=== PATIENT | female | born 1945 | race Caucasian/White ===

== ENCOUNTER → 2017-07-30 11:24 | Outpatient (CLI) | payer MEDICARE, MEDICAID, SELFPAY ==
[2017-07-30 12:01] LABS: Anion Gap 10.6 mEq/L (5-15); Blood Urea Nitrogen 26 mg/dL (7-18); Carbon Dioxide 30 mmol/L (21.0-32.0); Chloride 103 mmol/L (98-107); Creatinine,Serum 1.17 mg/dL (0.55-1.02); Estimated Glomerular Filt Rate 45 ml/min (>60); GFR (African American) 55 ML/MIN (>60); Glucose 92 mg/dL (74-106); Potassium 5.6 mmoL/L (3.5-5.1); Sodium 138 mmol/L (136-145)
[2017-07-30 12:41] LABS: Basophils % 0.2 % (0.1-2.0); Eosinophils # 0.1 K/mm3 (0.0-0.4); Hematocrit 38.3 % (37.0-47.0); Hemoglobin 11.8 g/dL (12.2-16.2); Lymphocytes # 1.9 K/mm3 (0.7-4.5); Lymphocytes % 13.7 K/mm3 (10-50); Mean Corpuscular HGB Conc 30.9 g/dL (31.8-35.4); Mean Corpuscular Hemoglobin 26.7 pg (27.0-31.2); Mean Corpuscular Volume 86.5 fl (81-99); Mean Platelet Volume 7.4 fl (7.4-10.4); Monocytes # 0.5 K/mm3 (0.1-1.0); Monocytes % 3.9 % (1.7-9.3); Neutrophils # 11.1 K/mm3 (1.8-7.8); Neutrophils % 81.3 % (37.0-80.0); Platelet Count 481 K/mm3 (142-424); Red Blood Count 4.43 M/mm3 (4.20-5.40); Red Cell Distribution Width 13.4 % (11.5-17.5); White Blood Count 13.6 K/mm3 (4.8-10.8)
--- NOTE | 2017-07-30 13:29 | CT_ITS ---
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 Sagittal and coronal reformatted images are reviewed as well. All CT scans at the facility use one or more dose reduction, viz: automated exposure control; ma/kV adjustment per patient size (including targeted exams where dose is matched to indication; i.e. head); or iterative reconstruction technique. FINDINGS: Angiographic findings: Diffuse atheromatous calcification involves the abdominal aorta. There is mild ectasia of the lower abdominal aorta at 1.7 cm. Diffuse calcific plaque also involves the iliac vessels. There is high-grade right renal artery stenosis at the ostium of 75 there is 50% stenosis of the ostium of the celiac artery. There is [id number] amputation on the right. Severe stenosis/occlusion is present at the proximal right common iliac artery with severe diffuse narrowing of the right external iliac and common femoral with occlusion of the right superficial femoral artery. Severe atheromatous changes involve the left common iliac and external iliac with diffuse narrowing of the external iliac artery on the left. There is diffuse atheromatous change of the superficial femoral artery on the left with segmental areas of high-grade stenosis involving the mid aspect of the SFA and distal aspect of the SFA. These areas are greater than 50%. The left popliteal artery and extremity lower extremity runoff vessels are very small but do appear patent. Posterior tib, peroneal, and anterior tibial arteries are patent to the ankle. Nonvascular findings: Parenchymal opacities are present in the right lower lobe and may be due to inflammatory or infectious process versus chronic interstitial change. There is a 14 mm isodense in left hepatic lobe may be due to hepatic cyst. Hypervascularity is present in the right hepatic lobe inferiorly and could be due to differential perfusion of the liver. Gallbladder is distended and there is mild prominence of the biliary radicles. No abdominal mass or focal inflammatory change evident.. There is overall slight increased density of the left hemipelvis compared to the right possibly related to weightbearing on the left side as opposed to the right side. There is increased subcutaneous density along the medial malleolus region which may be due to patient's area of soft tissue defect. Please correlate clinically. IMPRESSION: 1. Severe atheromatous changes of the aortoiliac and runoff vessels. 2. Occlusion of the proximal right common iliac 3. Diffuse segmental high-grade stenosis of the left common iliac, external iliac and SFA. There are multiple segmental areas of stenosis of 50% or greater. No obvious occlusive change. 3. The popliteal runoff vessels on the left are small but are not occluded.
[2017-07-30 13:48] LABS: Erythrocyte Sedimentation Rate 72 mm/hr (0-30)
--- NOTE | 2017-07-30 14:58 | HMH.ITSHM ---
VITAMIN B12 PEN NEEDLE MULTIPLE VITAMINS ALBUTEROL DILTIAZEM HYDROCHLORIDE METFORMIN SIMVASTATIN PROAIR HFA NADOLOL AMBIEN LANTUS MUPIROCIN TOPICAL LISNIOPRIL GABAPENTIN
== END ==
PROVIDERS: Visit Provider Internal Medicine Adolescent Medicine
DX: L97.922 Non-pressure chronic ulcer of unspecified part of left lower leg with fat layer exposed (principal); I73.9 Peripheral vascular disease, unspecified
CPT/HCPCS: 36415; 73701; 80048; 85025; 85651; Q9967

== ENCOUNTER → 2017-08-04 11:54 | Outpatient (REF) | payer MEDICARE, MEDICAID, SELFPAY | LOC: LAB 11:54 | PROVIDERS: Visit Provider Internal Medicine Adolescent Medicine | DX: L97.922 Non-pressure chronic ulcer of unspecified part of left lower leg with fat layer exposed (principal); I73.9 Peripheral vascular disease, unspecified | CPT/HCPCS: 87070; 87205 ==

== ENCOUNTER 2017-08-21 10:00 | Outpatient (RCR) | payer MEDICARE, MEDICAID, SELFPAY ==
--- NOTE | 2017-08-04 15:56 | HMH.PTOPWND ---
Rehab Outpt Wound Evaluation Rehab OP Wound Evaluation Start: 08/04/17 09:42 Freq: Status: Active Protocol: Document 08/04/17 09:42 JOESPH (Rec: 08/04/17 09:51 PHOPREET [id number]) Electronically Signed By Rene Reilly, PT 08/04/17 09:42 Subjective/History History History Pt presents with left med mal wound x 2-3 wks and reports, It was red for a few months before this sore showed up. Pt reports minimal c/o pain and tenderness in the periwound area. She had CT angiogram performed which shows significant reduction in arterial flow throughout the left LE. She also has hx of right AKA performed ~ 6 yrs ago. PMH: DM, HTBN, Asthma, JEANNA. Wound Eval Wound Left Medial Ankle Wound Type Arterial ulcer Wound Length (cm) 0.8 Wound Width (cm) 0.8 Wound Depth (cm) 0.2 Wound Bed Appearance Yellow White Percentage of Slough (%) 100 Wound Margins Description Well Defined Surrounding Tissue Appearance Bright Red Drainage Description Serosanguineous Drainage Amount Small Primary Dressing Silver Dressing Wound Secondary Dressing Type Hydrocolloid Wound Debridement Method Sharps Forceps Wound Debridement Amount of Tissue Minimal Removed Wound Problems/Impairments Impairments Problems/Impairmments Palpation Tenderness Wound Care Needs Subjective C/O Pain Impaired Self Care/Self Management Prognosis Rehab Potential Fair Comment Poor arterial circulation and Diabetes provide significant barrier to healing. Clinical Impression Consistent with Diagnosis Yes Short Term Goals Number of Weeks 4 Decreased Palpation Tenderness Yes: to min Increase Red Granulation Tissue % Yes: by 50% Needle Straightener Goals Number of Weeks 8 Decreased Palpation Tenderness Yes: to none Increase Red Granulation Tissue % Yes: by 100% Patient to be Ind w/ Home Wound Care/ Yes Dressing Changes Outpatient Therapy Plan of Care Treatment Plan May Include Therapeutic Exercise Including Home Yes Exercise Program
== END 2017-08-21 10:01 | disposition home or self-care (01) ==
LOC: PT 10:00
PROVIDERS: Family Provider Internal Medicine Adolescent Medicine; Visit Provider Internal Medicine Adolescent Medicine
DX: L97.922 Non-pressure chronic ulcer of unspecified part of left lower leg with fat layer exposed (principal)
CPT/HCPCS: 97162; 97597

== ENCOUNTER → 2017-09-18 06:51 | Outpatient (CLI) | payer MEDICARE, MEDICAID, SELFPAY ==
--- NOTE | 2017-09-18 06:53 | CA_ITS ---
PROCEDURE: 2-D M-mode and color Doppler study INDICATIONS FOR THE TEST: Chest pain COPDX Heart Murmur Tobacco SmokingEX Palpitations Fatigue Syncope Edema HypertensionXDiabetes MellitusX Rheumatic Fever SOBX DOEXObesity HyperlipidemiaX Family History HD Additional History PAD,RBBB PATIENT INFORMATION HEIGHT: 67 WEIGHT:130 GENDER: Female B/P:120/80 2-D/M-MODE INTERPRETATION: 2-D MEASUREMENTS OBSERVED VALUES IN CMS Right Ventricular Dimension (RVDd) 2.0 Interventricular Septum (Thickness)(IVsd) .9 Left Ventricular Internal Dimensions(LVIDd) 4.5 Left Ventricular Posterior Wall (Thickness)(LVPWd) .9 Aortic Root 3.1 Aortic Cusp Separation 1.6 Left Atrial Dimensions (LAD) 3.0 2D 1. Left atrium is normal size, left ventricle is normal size, there is no concentric left ventricular hypertrophy, visually estimated ejection fraction 55% with no obvious regional wall motion abnormality. 2. The right atrium and right ventricle are qualitatively mildly enlarged with normal contractility. 3. The aortic valve is minimally thickened and fibrosed. 4. The mitral and tricuspid valve are grossly normal. 5. The pulmonic valve is poorly visualized. 6. No significant pericardial effusion noted. DOPPLER INTERROGATION: Doppler interrogation of the aortic, mitral and tricuspid valvular presence of mild mitral and tricuspid regurgitation, tricuspid and jet velocity insufficient for calculation of the right ventricular systolic pressure, diastolic parameters are inconclusive. CONCLUSION: 1. Normal left ventricular size, preserved left ventricular systolic function, visually estimated ejection fraction 55% with no obvious regional wall motion abnormality, diastolic parameters are inconclusive. 2. Mildly enlarged right ventricle with normal contractility. 3. Mild mitral and tricuspid regurgitation 4. No significant pericardial effusion noted.
--- NOTE | 2017-09-18 06:53 | NM_ITS ---
History and Indications: Hypertension, diabetes, hyperlipidemia, family history Procedure: Patient received a 0.4 mg of Lexiscan, resting heart rate was 70 bpm resting blood pressure 175/70, with Lexiscan maximum heart rate achieved was 89 bpm which is less than 85% of the maximum predicted heart rate and a blood pressure was 143/61. With intravenous Lexiscan patient complained of shortness of breath. Electrocardiogram: Resting electrocardiogram showed sinus rhythm right ventricular conduction delay, with Lexiscan there is less than 1.[address] segment depression noted from the baseline EKG. The EKG portion of the Lexiscan Myoview is nondiagnostic. Cardiac stress and resting SPECT images: Cardiac stress and rest SPECT images were obtained using technetium 99 Myoview 30.1 mCi at stress and 10.3 mCi at rest. Gated SPECT further analysis of segmental wall motion and calculation of the ejection fraction also done. Cardiac stress and the suspect images show a fixed defect anteroseptally with normal contractility gated SPECT is likely secondary to soft tissue attenuation, no reversible ischemia seen, computer derived ejection fraction over 65% with no obvious regional wall motion abnormality, right ventricle is mildly enlarged with normal contractility. Conclusion: 1. The EKG portion of the Lexiscan Myoview is nondiagnostic. 2. No obvious scintigraphic evidence of reversible ischemia seen, computer derived ejection fraction is over 65% with no obvious regional wall motion abnormality, right ventricle is mildly enlarged with normal contractility.
--- NOTE | 2017-09-18 10:35 | HMH.ITSHM ---
albuterol metformin simvastatin ambien lantus muprirocin lisinopril gabapentin nadolol
== END ==
PROVIDERS: Family Provider Internal Medicine Adolescent Medicine; PCP Internal Medicine Adolescent Medicine; Visit Provider Internal Medicine
DX: I45.10 Unspecified right bundle-branch block (principal); R94.31 Abnormal electrocardiogram [ECG] [EKG]; I73.9 Peripheral vascular disease, unspecified; E78.5 Hyperlipidemia, unspecified; E11.9 Type 2 diabetes mellitus without complications; I10 Essential (primary) hypertension
CPT/HCPCS: 78452; 93017; 93306; A9502; J2785

== ENCOUNTER → 2017-10-23 07:56 | Outpatient (CLI) | payer MEDICARE, MEDICAID, SELFPAY ==
--- NOTE | 2017-10-23 07:58 | AS_ITS ---
Renal Arterial Duplex IMPRESSIONS 1. Greater than 60% stenosis involving the right renal artery 2. No evidence of left renal artery stenosis. 3. Left renal artery waveforms appears highly resistive. Complete renal arterial duplex. Duplex scan and Doppler flow study including spectral analysis, color and izquierdo scale imaging. Height: Height: 170.2cm. Height: 67in. Weight: Weight: 59kg. Weight: 129.7lb. Body mass index: BMI: 20.4kg/m^2. Body surface area: BSA: 1.67m^2. Location: Vascular laboratory. Patient status: Outpatient. Tables: Arterial flow: + +--------+--------+ Location V sys V ed + +--------+--------+ Right renal - proximal 394cm/s 59.1cm/s + +--------+--------+ Right renal - mid 140cm/s 24.4cm/s + +--------+--------+ Right renal - distal 92.9cm/s 20.5cm/s + +--------+--------+ Left renal - proximal 149cm/s 25.8cm/s + +--------+--------+ Left renal - mid 112cm/s 29.5cm/s + +--------+--------+ Left renal - distal 130cm/s 24cm/s + +--------+--------+ Right renal - Origin 400cm/s 44cm/s + +--------+--------+ Left renal - Origin 153cm/s 26cm/s + +--------+--------+ Artery mapping: + +--------+ + Location Diameter Observations + +--------+ + Abdominal aorta - mid 1.8mm Calcification + +--------+ + Renal anatomy: + +-----+-----+ Left Right + +-----+-----+ Long axis 8.4cm 10cm + +-----+-----+ Short axis 4.4cm 4.3cm + +-----+-----+ Velocity ratios: + +-----+ V sys + +-----+ Right renal/aortic 5.4 + +-----+ Left renal/aortic 2.1 + +-----+ (Report amended ) Electronically signed by: Silviano Dean [id number]
== END ==
PROVIDERS: Family Provider Internal Medicine Adolescent Medicine; PCP Internal Medicine Adolescent Medicine; Visit Provider Internal Medicine
DX: R09.89 Other specified symptoms and signs involving the circulatory and respiratory systems (principal); I73.9 Peripheral vascular disease, unspecified
CPT/HCPCS: 93976

== ENCOUNTER 2018-02-05 13:00 | Outpatient (RCR) | payer MEDICARE, MEDICAID, SELFPAY ==
--- NOTE | 2018-01-28 13:35 | HMH.PTOPWND ---
Rehab Outpt Wound Evaluation Rehab OP Wound Evaluation Start: 01/28/18 12:58 Freq: Status: Active Protocol: Document 01/28/18 13:25 PHORSID (Rec: 01/28/18 13:34 PHORNE [id number]) Electronically Signed By Rene Reilly, PT 01/28/18 13:25 Subjective/History History History Pt is 73 yowf who presents with c/o chronic wound to left med malleolus x ~ 1 yr. She reports insidious appearance of the wound initially. She has undergone stenting of the left LE to increase arterial blood flow ~ 5 mos ago. She has PMH of DM-II, HTN, PAD, right AKA. She also rec ently underwent renal US which showed 60% stenosis of right renal artery. Subjective Subjective Currently no c/o pain, but she does report intermittent burning in periwound tissue of left LE. Hyperkeratotic rim noted around wound edge. Wound Eval Wound Left Medial Ankle Wound Type Arterial ulcer Is This a Chronic Wound Yes Wound Length (cm) 0.9 Wound Width (cm) 1.1 Wound Bed Appearance Beefy Red Percentage Granulated (%) 100 Wound Margins Description Well Defined Surrounding Tissue Appearance [place] Edema Type Non-Pitting Edema Degree 1+ Query Text:1+ Trace, Barely Detectable, Rebound 15-30 seconds 2+ Moderate, Slight Indentation, Rebound 10-20 seconds 3+ Deep, Deeper Indentation, Rebound > 30 seconds 4+ Very Deep, Rebound > 60 seconds Edema Appearance Shiny Drainage Description Serous Drainage Amount Scant Drainage Odor No Odor Packing Type Hydrogel (Amorphous) Collagen Comment Silvasorb gel, Puracol Primary Dressing Film Dressing Comment tegaderm with pad Wound Debridement Method Sharps Wound Debridement Amount of Tissue Minimal Removed Wound Debridement Result Healthy Tissue Revealed Dressing Change Patient Tolerance Tolerated Well Wound Problems/Impairments Impairments Problems/Impairmments Increased Edema Wound Care Needs Subjective C/O Pain
== END 2018-02-05 13:01 | disposition home or self-care (01) ==
LOC: PT 13:00
PROVIDERS: Family Provider Internal Medicine Adolescent Medicine; PCP Internal Medicine Adolescent Medicine; Visit Provider Internal Medicine Adolescent Medicine
DX: L03.116 Cellulitis of left lower limb (principal)
CPT/HCPCS: 97162

== ENCOUNTER → 2018-10-02 12:11 | Outpatient (CLI) | payer MEDICARE, MEDICAID, SELFPAY ==
[2018-10-02 12:42] LABS: Basophils % 0.3 % (0.1-2.0); Eosinophils # 0.1 K/mm3 (0.0-0.4); Eosinophils % 1.3 % (0.1-12.0); Hematocrit 35.4 % (37.0-47.0); Hemoglobin 10.9 g/dL (12.2-16.2); Lymphocytes # 1.6 K/mm3 (0.7-4.5); Lymphocytes % 15.6 % (10-50); Mean Corpuscular HGB Conc 30.7 g/dL (31.8-35.4); Mean Corpuscular Volume 84.8 fl (81-99); Mean Platelet Volume 7.6 fl (7.4-10.4); Monocytes # 0.5 K/mm3 (0.1-1.0); Monocytes % 4.6 % (1.7-9.3); Neutrophils # 8.2 K/mm3 (1.8-7.8); Neutrophils % 78.1 % (37.0-80.0); Platelet Count 368 K/mm3 (142-424); Red Blood Count 4.18 M/mm3 (4.20-5.40); White Blood Count 10.5 K/mm3 (4.8-10.8)
[2018-10-02 13:11] LABS: Hemoglobin A1C 5.8 % (0.0-7.0)
[2018-10-02 13:22] LABS: Alanine Aminotransferase 14 U/L (12-78); Albumin Level 3.4 gm/dL (3.4-5.0); Albumin/Globulin Ratio 0.8 (1.1-1.8); Alkaline Phosphatase 150 U/L (46-116); Anion Gap 13.7 mEq/L (5-15); Aspartate Amino Transferase 6 U/L (15-37); Bilirubin,Total 0.2 mg/dL (0.2-1.0); Blood Urea Nitrogen 21 mg/dL (7-18); Calcium 8.9 mg/dL (8.5-10.1); Carbon Dioxide 29 mmol/L (21.0-32.0); Chloride 102 mmol/L (98-107); Chol/HDL Ratio 3.5 (1-3.5); Cholesterol 152 mg/dL (140-200); Creatinine,Serum 1.04 mg/dL (0.55-1.02); Estimated Glomerular Filt Rate 52 ml/min (>60); GFR (African American) 63 ML/MIN (>60); Globulin 4.4 gm/dl (1.3-3.2); Glucose 82 mg/dL (74-106); HDL Cholesterol 44 mg/dL (29-89); LDL Cholesterol 75 mg/dL (0-130); Potassium 4.7 mmoL/L (3.5-5.1); Sodium 140 mmol/L (136-145); Total Protein,Serum 7.8 gm/dL (6.4-8.2); Triglycerides 167 mg/dL (30-200); VLDL Cholesterol 33 mg/dL (0-40)
== END ==
PROVIDERS: Visit Provider Internal Medicine Adolescent Medicine
DX: E78.5 Hyperlipidemia, unspecified (principal); E11.9 Type 2 diabetes mellitus without complications; Z79.4 Long term (current) use of insulin; Z79.84 Long term (current) use of oral hypoglycemic drugs; I73.9 Peripheral vascular disease, unspecified
CPT/HCPCS: 36415; 80053; 80061; 83036; 85025

== ENCOUNTER 2018-10-05 20:05 | Emergency (ER) | payer MEDICARE, MEDICAID, SELFPAY ==
[2018-10-05 20:12] VITALS: BP 190/69; PULSE 79; RESP 18; TEMP 36.9; O2SAT 92; BMI 20.3
[2018-10-05 20:17] VITALS: BP 190/69; PULSE 79; RESP 20; TEMP 36.9; O2SAT 93; BMI 20.3
--- NOTE | 2018-10-05 21:23 | HMH.EDUTC ---
[facility] – [place], [place] Disposition Clinical Impression: Finger laceration Qualifiers: Encounter type: initial encounter Finger: index finger Damage to nail status: without damage Foreign body presence: without foreign body Laterality: right Qualified Code(s): S61.210A - Laceration without foreign body of right index finger without damage to nail, initial encounter Disposition: Home, Self-Care Condition on Discharge: Good Instructions: DI for Laceration Repair -- Finger, How to Care for a Laceration After Repair, DI for Laceration Repair -- Simple Additional Instructions: You have required stitches today. Please read the following instructions so you know how to care for them: 1. Keep wound area dry for the first 24 hours. 2 May clean gently with mild soap and water, after 48 hours to prevent crusting over suture knots. 3. You may shower if your provider gives permission but do not take a bath until the skin is healed.. 4. Never leave a wet dressing or Band-Aid on your stitches as this allows bacteria to reach the area and may cause infection. Band-aids can cause the wound to sweat and not recommended to wear for long periods of time Watch for signs of infection: Increasing redness, tenderness or warmth around the suture site Unusual swelling around the site Appearance of pus around each suture or any red streaks follow up with family doctor immediately if any signs of infectin Fever If you develop any of the above signs or symptoms of infection, Follow up with Family Physician immediately 5. Suture removal in __10-12__days Referrals: Juan Johnson MD [Primary Care Provider] - As needed Time of Disposition: 21:28 Medical Decision Making - Jonatan Inquiry Pt receiving controlled substance: No Jonatan was queried for this patient: No Vital Signs: 10/05/18 20:12 10/05/18 20:17 Temperature 98.5 F 98.5 F Temperature Source Oral Oral Pulse Rate [Right Radial] 79 79 Respiratory Rate 18 20 Blood Pressure [Right Arm] 190/69 H 190/69 H Blood Pressure Mean [Right Arm] 109 109 02 Sat by Pulse Oximetry 92 L 93 L Oxygen Delivery Method Room Air [facility] – [place], [place] HPI - General Stated complaint: AO 0726@2200 Lac to R Index finger Time Seen by Provider: 10/05/18 21:00 Mode of Arrival: Ambulatory Source of Information: Patient Limitations: No Limitations Description of Symptoms (Recalled from Triage Doc. by RN): pt c/o lac on rt hand index finger this morning HEENT Symptoms (Recalled from RN notes): No Resp Symptoms (Recalled from RN notes): No Skin Symptoms (Recalled from RN notes): Yes MS Symptoms (Recalled from RN notes): No Functional Status (Recalled from RN notes): n/a - History of Present Illness Provider Complaint: Patient state that she accidently pinched the skin on her right index finger earlier State that she is on blood thinners and they could'nt get it to stop bleeding State that she noticed that it looke like the skin was gone so they come in to get it checked - Related Data Home Medications Medication Instructions Recorded Confirmed nadolol 40 mg tablet 40 mg PO BID 08/12/17 simvastatin 20 mg tablet 20 mg PO QAM 08/12/17 albuterol sulfate 2.5 mg/3 mL 1.25 mg INHALATION TID ml 09/02/17 (0.083 %) solution for nebulization insulin glargine (U-100) 100 1 unit SUB-Q DAILY ml 09/02/17 unit/mL (3 mL) subcutaneous pen lisinopril 20 mg tablet 20 mg PO DAILY tab 09/02/17 metformin ER 500 mg 500 mg PO DAILY tab 09/02/17 tablet,extended release 24 hr gabapentin 300 mg capsule 300 mg PO TID cap 02/03/18 zolpidem 10 mg tablet 5 mg PO QHS tab 02/03/18 Previous Rx's Medication Instructions Recorded aspirin 81 mg tablet,delayed 81 mg PO DAILY #30 tab 11/04/17 release clopidogrel 75 mg tablet 75 mg PO DAILY #30 tab 05/11/18 diltiazem ER 120 mg 120 mg PO DAILY #30 cap 07/23/18 capsule,extended release 12 hr Allergies Allergy/AdvReac Type Severity Reaction Status Date / Time Penicillins [PENICILLINS] Al
[2018-10-05 21:24] VITALS: BP 126/66; PULSE 65; RESP 18; TEMP 36.7; O2SAT 100
--- NOTE | 2018-10-05 21:27 | ED_ITS ---
[facility] [place] Clinical Impression: Finger laceration Qualifiers: Encounter type: initial encounter Finger: index finger Damage to nail status: without damage Foreign body presence: without foreign body Laterality: right Qualified Code(s): S61.210A - Laceration without foreign body of right index finger without damage to nail, initial encounter Disposition: Home, Self-Care Condition on Discharge: Good Instructions: DI for Laceration Repair -- Finger, How to Care for a Laceration After Repair, DI for Laceration Repair -- Simple Additional Instructions: You have required stitches today. Please read the following instructions so you know how to care for them: 1. Keep wound area dry for the first 24 hours. 2 May clean gently with mild soap and water, after 48 hours to prevent crusting over suture knots. 3. You may shower if your provider gives permission but do not take a bath until the skin is healed.. 4. Never leave a wet dressing or Band-Aid on your stitches as this allows bacteria to reach the area and may cause infection. Band-aids can cause the wound to sweat and not recommended to wear for long periods of time Watch for signs of infection: Increasing redness, tenderness or warmth around the suture site Unusual swelling around the site Appearance of pus around each suture or any red streaks follow up with family doctor immediately if any signs of infectin Fever If you develop any of the above signs or symptoms of infection, Follow up with Family Physician immediately 5. Suture removal in __10-12__days Referrals: Juan Johnson MD [Primary Care Provider] - As needed Time of Disposition: 21:28 Medical Decision Making - Jonatan Inquiry Pt receiving controlled substance: No Jonatan was queried for this patient: No Vital Signs: 10/05/18 20:12 10/05/18 20:17 Temperature 98.5 F 98.5 F Temperature Source Oral Oral Pulse Rate [Right Radial] 79 79 Respiratory Rate 18 20 Blood Pressure [Right Arm] 190/69 H 190/69 H Blood Pressure Mean [Right Arm] 109 109 02 Sat by Pulse Oximetry 92 L 93 L Oxygen Delivery Method Room Air [facility] [place] - General Stated complaint: AO 0726@2200 Lac to R Index finger Time Seen by Provider: 10/05/18 21:00 Mode of Arrival: Ambulatory Source of Information: Patient Limitations: No Limitations Description of Symptoms (Recalled from Triage Doc. by RN): pt c/o lac on rt hand index finger this morning HEENT Symptoms (Recalled from RN notes): No Resp Symptoms (Recalled from RN notes): No Skin Symptoms (Recalled from RN notes): Yes MS Symptoms (Recalled from RN notes): No Functional Status (Recalled from RN notes): n/a - History of Present Illness Provider Complaint: Patient state that she accidently pinched the skin on her right index finger earlier State that she is on blood thinners and they could'nt get it to stop bleeding State that she noticed that it looke like the skin was gone so they come in to get it checked - Related Data Home Medications Medication Instructions Recorded Confirmed nadolol 40 mg tablet 40 mg PO BID 08/12/17 simvastatin 20 mg tablet 20 mg PO QAM 08/12/17 albuterol sulfate 2.5 mg/3 mL 1.25 mg INHALATION TID ml 09/02/17 (0.083 %) solution for nebulization insulin glargine (U-100) 100 1 unit SUB-Q DAILY ml 09/02/17 unit/mL (3 mL) subcutaneous pen lisinopril 20 mg tablet 20 mg PO DAILY tab 09/02/17
== END 2018-10-05 21:30 | disposition home or self-care (01) ==
PROVIDERS: Emergency Provider Nurse Practitioner; PCP Internal Medicine Adolescent Medicine
DX: S61.210A Laceration without foreign body of right index finger without damage to nail, initial encounter (principal); E10.9 Type 1 diabetes mellitus without complications; I10 Essential (primary) hypertension; Z87.891 Personal history of nicotine dependence; Z88.0 Allergy status to penicillin; W45.8XXA Other foreign body or object entering through skin, initial encounter
CPT/HCPCS: 12001; G0463; 99201

== ENCOUNTER 2019-01-14 08:17 | Inpatient (IN) ==
--- NOTE | 2019-01-14 08:24 | Emergency Department Note ---
ED Disposition Clinical Impression: Avulsion of skin, Traumatic hematoma of forehead, Hematoma of right hip, Fall at home, Hip fracture, UTI (urinary tract infection) Disposition: Admitted as Observation Condition on Discharge: Serious Instructions: DI for Hematoma (Bruise), How to Prevent Falls Referrals: Juan Johnson MD [Primary Care Provider] - - Critical Care Critical Care Time: No Attestation: On , the high probability of a clinically significant, sudden or life t hreatening deterioration of the following system(s) required my full and direct attention, intervention and personal management. The time I documented below is in addition to time spent performing reported procedures but includes the following listed in this critical care notation. Medical Decision Making - Medical Records Medical records reviewed: Yes: I reviewed the patient's medical records. - Jonatan Inquiry Pt receiving controlled substance: No Vital Signs: 01/14/19 08:18 01/14/19 08:36 01/14/19 08:37 Temperature 98 F Temperature Source Oral Pulse Rate [Left Radial] 80 Respiratory Rate 24 Blood Pressure [Right Arm] 173/83 H Blood Pressure Mean [Right Arm] 113 Blood Pressure Source [Right Arm] Automatic Cuff Blood Pressure Position [Right Arm] Sitting 02 Sat by Pulse Oximetry 93 L 88 L 99 Oxygen Delivery Method Room Air Room Air Nasal Cannula Oxygen Flow Rate (LPM) 3 01/14/19 08:48 01/14/19 10:34 01/14/19 11:13 Temperature Temperature Source Pulse Rate [Left Radial] 88 84 86 Respiratory Rate Blood Pressure [Right Arm] 137/70 99/55 L 103/50 L Blood Pressure Mean [Right Arm] 92 69 67 Blood Pressure Source [Right Arm] Blood Pressure Position [Right Arm] Sitting Sitting 02 Sat by Pulse Oximetry 98 Oxygen Delivery Method Oxygen Flow Rate (LPM) - Lab Data Lab Results 01/14/19 08:20: WBC 15.6 H, RBC 4.26, Hgb 10.8 L, Hct 35.4 L, MCV 83.1, MCH 25.4 L, MCHC 30.6 L, RDW 15.2, Plt Count 417, MPV 7.7, Neut % (Auto) 82.3 H, Lymph % (Auto) 10.6, [place] % (Auto) 6.5, Eos % (Auto) 0.5, Baso % (Auto) 0.2, Neut # (Auto) 12.8 H, Lymph # (Auto) 1.7, [place] # (Auto) 1.0, Eos # (Auto) 0.1, Baso # (Auto) 0.0, Total Counted 100, Neutrophils % (Manual) 85 H, Band Neutrophils % 2.0, Lymphocytes % (Manual) 5 L, Monocytes % (Manual) 7, Eosinophils % (Manual) 1, Platelet Estimate Normal, Hypochromasia 1+ 01/14/19 08:20: B-Natriuretic Peptide 221 H 01/14/19 08:26: Urine Color Yellow, Urine Appearance Cloudy, Urine pH 6.0, Ur Specific [place] 1.020, Urine Protein 1+, Urine Glucose (UA) Negative, Urine Ketones Negative, Urine Blood Trace-i, Urine Nitrate Negative, Urine Bilirubin Negative, Urine Urobilinogen 0.2, Ur Leukocyte Esterase 1+ A, Urine RBC None, Urine WBC 5-10, Ur Squamous Epith Cells 3-5, Urine Bacteria 4+ 01/14/19 09:55: PT 10.7, INR 1.03 01/14/19 09:55: Sodium 137, Potassium 4.7, Chloride 102, Carbon Dioxide 28, Anion Gap 11.7, BUN 19 H, Creatinine 1.10 H, Estimated Creat Clear 39, Estimated GFR 48 L, Est GFR ( Amer) 59, Glucose 48 L, Calcium 8.6, Total Bilirubin 0.2, AST 16, ALT 16, Alkaline Phosphatase 106, Total Creatine Kinase 69, CK-MB (CK-2) 1.1, CK-MB (CK-2) Rel Index 1.6, Troponin I < 0.02, Total Protein 8.2, Albumin 3.3 L, Globulin 4.9 H, Albumin/Globulin Ratio 0.7 L 01/14/19 09:55: Lactate 0.5 Result diagrams: 01/14/19 08:20 01/14/19 09:55 Orders (Tests/Meds): ED MEDICATIONS Generic Name Dose Route Start Last Admin Trade Name Freq PRN Reason Stop Dose Admin Levofloxacin/Dextrose 500 mg in 100 mls @ 100 mls/hr 01/14/19 12:45 Levaquin 500mg/100ml Premix IV 01/28/19 12:44 Q24H ALEX Protocol Discontinued Medications Generic Name Dose Route Start Last Admin Trade Name Freq PRN Reason Stop Dose Admin Dextrose 50 ml 01/14/19 10:51 01/14/19 10:52 Dextrose 50% 50ml Syringe IVP 01/14/19 10:52 50 ml ONCE ONE Administration Hydromorphone HCl 0.5 mg 01/14/19 08:49 01/14/19 08:35 Dilaudid 2mg/Ml Syringe IV 01/14/19 08:50 0.5 mg ONCE ONE Administration Hydromorphone HCl 0.5 mg 01/14/19 10:15 01/14/19 10:16 Dilaudid 2mg/Ml Syringe IV 01/14/19 10:16 0.5 mg ONCE ONE Administration Sodium Chloride 1,000 mls @ 999 mls/hr 01/14/19 09:00 01/14/19 08:51 Sod Chlor 0.9% 1000ml Bag IV 01/14/19 10:00 999 mls/hr .Q1H1M ALEX Administration Ondansetron HCl 4 mg 01/14/19 08:49 01/14/19 08:51 Zofran 4mg/2ml Vial IV 01/14/19 08:50 4 mg ONCE ONE Administration Tetanus/Reduced Diphtheria/Acell Pertussis 0.5 ml 01/14/19 08:56 01/14/19 10: 03 Adacel Tdap 0.5ml Syringe IM 01/14/19 08:57 0.5 ml .ONCE ONE Administration ORDERS Category Date Time Status Femur XR right 2 views [XR femur RT 2V] Stat Exams 01/14/19 11:53 Ordered Hip XR right minimum 2 views [XR hip RT 2-3V w/pelvis] Exams 01/14/19 11:52 Ordered Stat Blood Culture Stat Micro 01/14/19 09:55 Received Urine Culture Stat Micro 01/14/19 08:26 Received - ECG Data Tracing #1 I reviewed this ECG and interpreted as documented below: Normal Sinus Rhythm: Yes Conduction abnormalities present: RBBB General Adult HPI - General Chief complaint: Wound/Laceration Stated complaint: Laceration Time Seen by Provider: 01/14/19 08:20 Mode of Arrival: EMS Source of Information: Patient, EMS - History of Present Illness HPI narrative: 33-year-old female with right AKA fell forward out of her wheelchair and sustained a hematoma to the right forehead and right hip. Onset (ago): hour(s) (1) Location: head, right, lower extremity Radiation: non-radiation Severity: moderate Quality: aching Consistency: constant Relieving factors: none Exacerbating factors: movement Associated symptoms: denies other symptoms - Related Data Home Medications Medication Instructions Recorded Confirmed nadolol 40 mg tablet 40 mg PO BID 08/12/17 01/14/19 simvastatin 20 mg tablet 20 mg PO QAM 08/12/17 01/14/19 albuterol sulfate 2.5 mg/3 mL 1.25 mg INHALATION TID ml 09/02/17 01/14/19 (0.083 %) solution for nebulization insulin glargine (U-100) 100 1 unit SUB-Q DAILY ml 09/02/17 01/14/19 unit/mL (3 mL) subcutaneous pen lisinopril 20 mg tablet 20 mg PO DAILY tab 09/02/17 01/14/19 metformin ER 500 mg 500 mg PO DAILY tab 09/02/17 01/14/19 tablet,extended release 24 hr gabapentin 300 mg capsule 300 mg PO TID cap 02/03/18 01/14/19 zolpidem 10 mg tablet 5 mg PO QHS tab 02/03/18 01/14/19 RX: Aspirin [Low Dose Aspirin EC] 81 mg PO DAILY 01/14/19 01/14/19 RX: Clopidogrel Bisulfate [Plavix 75 mg PO DAILY 01/14/19 01/14/19 75mg Tab] Previous Rx's Medication Instructions Recorded diltiazem ER 120 mg 120 mg PO DAILY #30 cap 01/14/19 capsule,extended release 12 hr Allergies Allergy/AdvReac Type Severity Reaction Status Date / Time Penicillins [PENICILLINS] Allergy Unknown Verified 02/10/18 09:54 [facility] History - Hepatitis A Screen Attestation statement:: This patient has been screened for Hepatitis A risk factors. I have reviewed the patient's past medical history: Yes Medical History: Reports:: Diabetes Mellitus Type 1, Hypertension Denies:: Cancer, Diabetes Mellitus Type 2, Internal Pacemaker, MRSA, Seizures Other Medical History: Reports: Arthritis Other Surgeries: Yes: Cardiac Catheterization (08/22/17 2 stents), Hysterectomy- Total, Other (right leg knee down amputated ). No: Pacemaker Amputation: Yes Fractures: No - Social History Smoking Status: Never smoker Tobacco Type: cigarettes Alcohol Intake: never Alcohol Intake Frequency:: other Substance Use Type: denies use Occupational Status: retired Housing: house Household Members: none Family Hx:: Diabetes ROS Obtained: Yes Systems reviewed as appropriate & no additional complaints - Constitutional Constitutional: Reports fatigue, Reports headache(s), Reports malaise - Eyes Eyes: Reports system reviewed and no additional complaints, except as docu - ENT Ears, Nose, Mouth, and Throat: Reports system reviewed and no additional complaints, except as docu - Cardiovascular Cardiovascular: Reports system reviewed and no additional complaints, except as docu - Respiratory Respiratory: Yes system reviewed and no additional complaints, except as docu - Gastrointestinal Gastrointestingal: Reports: system reviewed and no additional complaints, except as docu - Genitourinary Female Genitourinary: Reports system reviewed and no additional complaints, except as docu - Musculoskeletal Musculoskeletal: Reports joint pain, Reports muscle aches - Integumentary/Breasts Skin/Breast: Reports wounds - Neurologic Neurologic: Denies abnormal speech, Denies behavioral changes, Denies confusion, Denies convulsions, Denies dizziness, Denies focal weakness, Reports headache(s), Denies loss of vision, Denies memory loss, Denies numbness, Denies seizure-like activity, Denies sensory deficit, Denies syncope, Denies vertigo - Endocrine Endocrine: Reports system reviewed and no additional complaints, except as docu - Hematologic/Lymphatic Henatologic/Lymphatic: Reports easy bruising - Allergic/Immunologic Allergic/Immunologic: Reports system reviewed and no additional complaints, except as docu Physical Exam - General General appearance: alert, in distress - Expanded Head Exam Head exam physical: Present: contusion, hematoma. Absent: laceration, abrasion, raccoon eyes, Romero's sign, tenderness of temporal artery, CSF rhinorrhea, CSF otorrhea - Eye Eye exam: Present: normal appearance, PERRL, EOMI. Absent: nystagmus, miosis, mydriasis, periorbital swelling, periorbital tenderness - ENT ENT exam: Present: normal exam, normal oropharynx, mucous membranes moist, TM's normal bilaterally, normal external ear exam - Neck Neck exam: Present: normal inspection, full ROM, trachea midline. Absent: meningismus, lymphadenopathy - Chest Chest inspection: Present: normal inspection, symmetric chest wall rise. Absent: tenderness - Respiratory Respiratory exam: Present: other (Rhonchi noted bilaterally, greater on the right). Absent: respiratory distress, wheezes, stridor, accessory muscle use, prolonged expiratory phase - Cardiovascular Cardiovascular exam: Present: regular rate, normal rhythm. Absent: JVD - Abdominal Exam Abdominal exam: Present: soft, normal bowel sounds. Absent: distention, tend erness, guarding - External exam: Present: normal external exam - Back Exam Back exam: Present: normal inspection. Absent: tenderness - Neurological Exam Neurological exam: Present: alert, oriented X3, CN II-XII intact, motor sensory deficit - Psychiatric Psychiatric exam: Present: normal affect, anxious - Skin Skin exam: Present: warm, dry, other (A trauma to right forehead and right hip skin tear to left hand) - Lymphatic Lymphatic Findings: no adenopathy
[2019-01-14 09:00] LABS: Basophils % 0.2 % (0.1-2.0); Eosinophils # 0.1 K/mm3 (0.0-0.4); Eosinophils % 0.5 % (0.1-12.0); Hematocrit 35.4 % (37.0-47.0); Hemoglobin 10.8 g/dL (12.2-16.2); Lymphocytes # 1.7 K/mm3 (0.7-4.5); Lymphocytes % 10.6 % (10-50); Mean Corpuscular HGB Conc 30.6 g/dL (31.8-35.4); Mean Corpuscular Volume 83.1 fl (81-99); Mean Platelet Volume 7.7 fl (7.4-10.4); Monocytes % 6.5 % (1.7-9.3); Neutrophils # 12.8 K/mm3 (1.8-7.8); Neutrophils % 82.3 % (37.0-80.0); Platelet Count 417 K/mm3 (142-424); Red Blood Count 4.26 M/mm3 (4.20-5.40); Red Cell Distribution Width 15.2 % (11.5-17.5); White Blood Count 15.6 K/mm3 (4.8-10.8)
[2019-01-14 09:27] LABS: Eosinophils % 1 % (0-3); Lymphocytes % 5 % (10-50); Monocytes % 7 % (2-9); Neutrophils % 85 % (42-76); Total Cells Counted 100
[2019-01-14 09:28] LABS: Hypochromasia 1+
[2019-01-14 09:35] LABS: Microscopic, Urine URINE MICROSCOPIC (MICROSCOPIC)
[2019-01-14 09:43] LABS: Appearance,Urine CLOUDY (Clear); Bilirubin,Urine Negative (Negative); Blood, Urine TRACE-I (Negative); Color,Urine YELLOW (Yellow); Glucose,Urine (UA) Negative (Negative); Ketones,Urine Negative (Negative); Leukocyte Esterase,Urine 1+ (Negative); Protein,Urine 1+ (Negative); Urobilinogen,Urine 0.2 EU/dl (0.2)
[2019-01-14 10:21] LABS: Bacteria,Urine 4+ /lpf
[2019-01-14 10:24] LABS: INR 1.03 (0.9-1.1); Prothrombin Time 10.7 seconds (9.4-11.8)
[2019-01-14 10:42] LABS: Alanine Aminotransferase 16 U/L (12-78); Albumin Level 3.3 gm/dL (3.4-5.0); Albumin/Globulin Ratio 0.7 (1.1-1.8); Alkaline Phosphatase 106 U/L (46-116); Anion Gap 11.7 mEq/L (5-15); Aspartate Amino Transferase 16 U/L (15-37); Bilirubin,Total 0.2 mg/dL (0.2-1.0); Blood Urea Nitrogen 19 mg/dL (7-18); Calcium 8.6 mg/dL (8.5-10.1); Carbon Dioxide 28 mmol/L (21.0-32.0); Chloride 102 mmol/L (98-107); Creatine Kinase 69 U/L (26-192); Globulin 4.9 gm/dl (1.3-3.2); Sodium 137 mmol/L (136-145); Total Protein,Serum 8.2 gm/dL (6.4-8.2)
[2019-01-14 10:43] LABS: Glucose 48 mg/dL (74-106)
--- NOTE | 2019-01-14 13:43 | History & Physical Report ---
*Admission Date: 01/14/19 *Chief complaint: fall, hip fracture *History of present illness: Ms. Teague is a 73-year-old female with multiple comorbidities consisting coronary artery disease, hypertension, diabetes, right AKA, on Plavix and aspirin who presented to the ER earlier today after a fall. Unable to obtain history from patient on exam this afternoon but obtain history from family at bedside (son and [id number]). They report that she fell while trying to transition from her bed to her wheelchair. She was using her manual wheelchair instead of her motorized scooter at the time and it appeared that it had flipped while she was trying to get into it causing her to fall, hit her head on the bedside table, and have trauma to right side of her face, arm, leg. They report that she she does not ambulate at baseline and is status post right AKA for complications of diabetes. She lives independently and transports around her house using either motorized scooter or manual wheelchair in her left leg for propulsion. They report finding her at her bedside and calling EMS who brought her to the ER. On assessment it was found that when she fell, she sustained large hematomas to the right hip and the scalp, as well as a right intertrochanteric femur fracture. He says that she does not ambulate at baseline and has not used a prosthesis for this limb. He says her leg was initially amputated due to complications of diabetes. She also has a history of peripheral vascular disease status post bypass grafting, though the exact procedure is unknown to him or the patient. Admitted for further management and possible fixation by orthopedic surgery. Unable to obtain review of systems from patient as she is sleeping secondary to pain medication. Dynamically stable on assessment. [facility] History I have reviewed the patient's past medical history: Yes Medical History: Reports:: Diabetes Mellitus Type 1, Hypertension Denies:: Cancer, Diabetes Mellitus Type 2, Internal Pacemaker, MRSA, Seizures *Have you ever received a pneumonia vaccine?: No *Have you received a flu vaccine this season?: No Other Medical History: Reports: Arthritis Other Surgeries: Yes: Cardiac Catheterization (08/22/17 2 stents), Hysterectomy- Total, Other (right leg knee down amputated ). No: Pacemaker Amputation: Yes Fractures: No - *Social History Smoking Status: Never smoker Tobacco Type: cigarettes Alcohol Intake: never Alcohol Intake Frequency:: other Substance Use Type: denies use *Occupational Status:: retired Housing: house Household Members: none *Travel in the last 8 weeks: None Family Hx:: Diabetes Review of Systems - Review of Systems Review of systems:: unable to obtain - *Neurologic Reports headache(s), Denies abnormal speech, Denies behavioral changes, Denies confusion, Denies seizure-like activity, Denies dizziness, Denies localized weakness, Denies loss of vision, Denies memory loss, Denies numbness, Denies s eizure-like activity, Denies sensory deficit, Denies fainting, Denies dizziness Meds Home Medications Medication Instructions Recorded Confirmed Type nadolol 40 mg tablet 40 mg PO BID 08/12/17 01/14/19 History insulin glargine (U-100) 100 20 unit SUB-Q HS ml 09/02/17 01/14/19 History unit/mL (3 mL) subcutaneous pen lisinopril 20 mg tablet 20 mg PO BID tab 09/02/17 01/14/19 History gabapentin 300 mg capsule 300 mg PO TID cap 02/03/18 01/14/19 History Albuterol Sulfate [Proair Hfa 2 puffs IH QIDP PRN 01/14/19 01/14/19 History 90mcg/puff Inh] Aspirin [Low Dose Aspirin EC] 81 mg PO DAILY 01/14/19 01/14/19 History Clopidogrel Bisulfate [Plavix 75mg 75 mg PO DAILY 01/14/19 01/14/19 History Tab] Linaclotide [Linzess] 145 mcg PO DAILY 01/14/19 01/14/19 History Metformin HCl 500 mg PO TID 01/14/19 01/14/19 History Rosuvastatin Calcium 5 mg PO HS 01/14/19 01/14/19 History Zolpidem Tartrate [Ambien 10mg 10 mg PO HS 01/14/19 01/14/19 History tablet] diltiazem ER 120 mg 120 mg PO DAILY #30 cap 01/14/19 01/14/19 Rx capsule,extended release 12 hr Allergies Allergy/AdvReac Type Severity Reaction Status Date / Time Penicillins [PENICILLINS] Allergy Unknown Verified 02/10/18 09:54 Exam Vital signs and Labs for Last 24 Hours: Temp Pulse Resp BP Pulse Ox 98 F 72 22 101/60 L 97 01/14/19 13:39 01/14/19 13:39 01/14/19 13:39 01/14/19 13:39 01/14/19 13:00 Laboratory Results - last 24 hr 01/14/19 08:20: WBC 15.6 H, RBC 4.26, Hgb 10.8 L, Hct 35.4 L, MCV 83.1, MCH 25.4 L, MCHC 30.6 L, RDW 15.2, Plt Count 417, MPV 7.7, Neut % (Auto) 82.3 H, Lymph % (Auto) 10.6, [place] % (Auto) 6.5, Eos % (Auto) 0.5, Baso % (Auto) 0.2, Neut # (Auto) 12.8 H, Lymph # (Auto) 1.7, [place] # (Auto) 1.0, Eos # (Auto) 0.1, Baso # (Auto) 0.0, Total Counted 100, Neutrophils % (Manual) 85 H, Band Neutrophils % 2.0, Lymphocytes % (Manual) 5 L, Monocytes % (Manual) 7, Eosinophils % (Manual) 1, Platelet Estimate Normal, Hypochromasia 1+ 01/14/19 08:20: B-Natriuretic Peptide 221 H 01/14/19 08:26: Urine Color Yellow, Urine Appearance Cloudy, Urine pH 6.0, Ur Specific [place] 1.020, Urine Protein 1+, Urine Glucose (UA) Negative, Urine Ketones Negative, Urine Blood Trace-i, Urine Nitrate Negative, Urine Bilirubin Negative, Urine Urobilinogen 0.2, Ur Leukocyte Esterase 1+ A, Urine RBC None, Urine WBC 5-10, Ur Squamous Epith Cells 3-5, Urine Bacteria 4+ 01/14/19 09:55: PT 10.7, INR 1.03 01/14/19 09:55: Sodium 137, Potassium 4.7, Chloride 102, Carbon Dioxide 28, Anion Gap 11.7, BUN 19 H, Creatinine 1.10 H, Estimated Creat Clear 39, Estimated GFR 48 L, Est GFR ( Amer) 59, Glucose 48 L, Calcium 8.6, Total Bilirubin 0.2, AST 16, ALT 16, Alkaline Phosphatase 106, Total Creatine Kinase 69, CK-MB (CK-2) 1.1, CK-MB (CK-2) Rel Index 1.6, Troponin I < 0.02, Total Protein 8.2, Albumin 3.3 L, Globulin 4.9 H, Albumin/Globulin Ratio 0.7 L 01/14/19 09:55: Lactate 0.5 01/14/19 12:37: POC Glucose 129 H I & O for Last 24 hours: Intake & Output 01/11/19 01/12/19 01/13/19 01/14/19 23:59 23:59 23:59 23:59 Weight 55.338 kg - Constitutional mild distress, thin, chronically ill appearing, somnolent - *Routine HEENT Exam Head: Present: normocephalic Comments: Large hematoma right forehead, bruising on right cheek, poor dentition with moist mucous membranes. - *Routine Neck Exam Present: supple. Absent: JVD - *Routine Respiratory Exam Present: CTA bilaterally. Absent: prolonged expiratory phase, crackles - *Routine Cardiovascular Exam Present: RRR, Normal S1. Absent: murmur - *Routine Abdominal Exam Present: soft, normoactive bowel sounds - *Routine Rectal Exam Patient deferred: visual exam - *Routine Exam Patient deferred: external exam - *Routine Extremities Exam Absent: cyanosis, clubbing, edema Comments: Pulses thready in left lower extremity. Right lower extremity absent proximal to knee, ecchymoses on right lateral hip - *Routine Skin Exam Present: intact, pallor. Absent: cyanosis, erythema - *Routine Neurological Exam Present: altered mental status Assessment and Plan (1) Fall at home Current visit: Yes Status: Acute Category: Medical Code(s): W19.XXXA - Unspecified fall, initial encounter; Y92.009 - Unspecified place in unspecified non-institutional (private) residence as the place of occurrence of the external cause (2) Hematoma of right hip Current visit: Yes Status: Acute Category: Medical Code(s): S70.01XA - Contusion of right hip, initial encounter (3) Intertrochanteric fracture of right hip Current visit: Yes Status: Acute Qualifiers: Encounter type: initial encounter Fracture type: closed Fracture alignment: nondisplaced Qualified Code(s): S72.144A - Nondisplaced intertrochanteric fracture of right femur, initial encounter for closed fracture Category: Medical Code(s): S72.141A - Displaced intertrochanteric fracture of right femur, initial encounter for closed fracture (4) Traumatic hematoma of forehead Current visit: Yes Status: Acute Category: Medical Code(s): S00.83XA - Contusion of other part of head, initial encounter (5) UTI (urinary tract infection) Current visit: Yes Status: Acute Category: Medical Code(s): N39.0 - Urinary tract infection, site not specified (6) HTN (hypertension) Current visit: No Status: Chronic Qualifiers: Hypertension type: essential hypertension Qualified Code(s): I10 - Essential (primary) hypertension Category: Medical Code(s): I10 - Essential (primary) hypertension (7) Diabetes mellitus Current visit: No Status: Chronic Qualifiers: Diabetes mellitus type: type 2 Diabetes mellitus care home 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 Diabetes mellitus complication status: with circulatory complication Diabetes mellitus complication detail: with other circulatory complications Qualified Code(s): E11.59 - Type 2 diabetes mellitus with other circulatory complications Category: Medical Code(s): E11.9 - Type 2 diabetes mellitus without complications (8) HLD (hyperlipidemia) Current visit: No Status: Chronic Qualifiers: Hyperlipidemia type: other hyperlipidemia Category: Medical Code(s): E78.5 - Hyperlipidemia, unspecified (9) PAD (peripheral artery disease) Current visit: No Status: Chronic Category: Medical Code(s): I73.9 - Peripheral vascular disease, unspecified (10) Sepsis Current visit: Yes Status: Acute Qualifiers: Sepsis type: sepsis due to unspecified organism Sepsis acute organ dysfunction status: without acute organ dysfunction Qualified Code(s): A41.9 - Sepsis, unspecified organism Category: Medical Code(s): A41.9 - Sepsis, unspecified organism Tachycardia greater than 90, leukocytosis, UA concerning for UTI. Heart rate could be explained by pain along with leukocytosis potentially secondary to infection versus demargination from fracture. While she meets criteria for sepsis at this time, will monitor and reevaluate in the morning as her condition could easily be explained by other comorbidities in the setting of hip fracture and pain. Will de-escalate treatment for UTI pending urine culture results. - Assessment and plan all Dx Assessment and Plan for all problems:: Ms. Teague is a 73-year-old female with multiple comorbidities including insulin-dependent diabetes, coronary artery disease and peripheral artery disease, status post right lower extremity amputation who is mobile only by wheelchair. She presents after a fall and sustaining multiple hematomas along with right intertrochanteric fracture of her hip. On aspirin and Plavix for her PAD. Patient admitted for orthopedics consult to discuss surgical versus nonsurgical management of fracture. Patient's serious comorbidities make her an elevated risk for procedure. She is nonweightbearing, fixation would be strictly palliative and for pain management. Will hold Plavix and aspirin at this time. Continue insulin for diabetes. Pain control as ordered with IV and oral opiates. Will hold lisinopril in the setting of patient's soft blood pressures. On initial assessment patient found to be tachycardic, have an elevated white count, and a UA concerning for UTI. These criteria technically meet sepsis definition. Received a dose of Levaquin on admission, will monitor cultures prior to continuing antibiotics. Blood cultures pending, fluid resuscitation administered. Further management pending cultures and orthopedics recommendations. Patient is a full code Clinically patient is in serious condition Prognosis is poor
--- NOTE | 2019-01-14 14:40 | Pharmacy Consult Notes ---
[facility] Pharmacy VTE Monitoring - Patient Demographics Admission date: 01/14/19 Report Date: 01/14/19 Time: 14:40 Allergies/Adverse Reactions: Patient Allergies Penicillins [PENICILLINS] Allergy (Unknown, Verified 02/10/18 09:54) Height: 1.7 m Weight: 52.248 kg Patient Problems: Current Active Problems Avulsion of skin (Acute) Traumatic hematoma of forehead (Acute) Hematoma of right hip (Acute) Fall at home (Acute) Hip fracture (Acute) UTI (urinary tract infection) (Acute) - VTE Risk Labs: VTE Related Lab Results Hgb 10.8 g/dL (12.2-16.2) L 01/14/19 08:20 Hct 35.4 % (37.0-47.0) L 01/14/19 08:20 Plt Count 417 K/mm3 (142-424) 01/14/19 08:20 PT 10.7 seconds (9.4-11.8) 01/14/19 09:55 INR 1.03 (0.9-1.1) 01/14/19 09:55 BUN 19 mg/dL (7-18) H 01/14/19 09:55 Creatinine 1.10 mg/dL (0.55-1.02) H 01/14/19 09:55 Estimated Creat Clear 39 mL/min (50-200) 01/14/19 09:55 Was VTE Risk Assessment Performed: Yes VTE Score: 8 VTE Risk Level: Moderate Risk Clinical Trial Participant: No - Prophylaxis VTE Prophylaxis Ordered?: Yes Types of VTE Prophylaxis: TEDS Knee High
--- NOTE | 2019-01-14 15:00 | Electrocardiograph Report ---
APPROVED REPORT Exam: Resting ECG HR:88 bpm ECG Measurements Heart Rate 88 AXES SD 168 P 78 QRSd 128 QRS 93 QT 400 T58 QTc 484 <Conclusion> Normal sinus rhythm Right bundle branch block Abnormal ECG Electronically signed by : Juan Johnson, 01/14/2019 14:59:33
--- NOTE | 2019-01-14 18:26 | Consult Report ---
*Admission Date: 01/14/19 *Reason for consult:: R hip fracture *History of present illness: 73-year-old female admitted through the ER for right hip fracture sustained earlier this morning. When I interviewed her she was alone and was unable to vocalize how she injured her hip. I spoke via telephone with her son, who says that his mother fell while getting out of bed into her chair. She does not ambulate at baseline and is status post right AKA for complications of diabetes. She uses a motorized scooter for transportation and lives alone. When she fell, she sustained large hematomas to the right hip and the scalp, as well as a right intertrochanteric femur fracture. He says that she does not ambulate at baseline and has not used a prosthesis for this limb. He says her leg was initially amputated due to complications of diabetes; she sustained a wound on his foot and did not tell anyone for fear of being a nuisance to her son. The wound was seen for him and by the time it was discovered, she had a extensive infection in this leg and amputation was performed. She also has a history of peripheral vascular disease status post bypass grafting, though the exact procedure is unknown to him or the patient. On x-rays of her pelvis at least one long section of graft material can be seen in her left pelvis. She is on aspirin and plavix at baseline. Currently she says she is not in severe pain in the hip. Review of Systems - Review of Systems Review of systems:: pertinent systems reviewed and negative unless documented b elow - *Neurologic Reports headache(s), Denies abnormal speech, Denies behavioral changes, Denies confusion, Denies seizure-like activity, Denies dizziness, Denies localized weakness, Denies loss of vision, Denies memory loss, Denies numbness, Denies seizure-like activity, Denies sensory deficit, Denies fainting, Denies dizziness [facility] History I have reviewed the patient's past medical history: Yes Medical History: Reports:: Diabetes Mellitus Type 2, Hyperlipidemia, Hypertension Denies:: Cancer, Diabetes Mellitus Type 1, Internal Pacemaker, MRSA, Seizures *Have you ever received a pneumonia vaccine?: Yes *Have you received a flu vaccine this season?: Yes Other Medical History: Reports: Arthritis Other Surgeries: Yes: Cardiac Catheterization (08/22/17 2 stents), Hysterectomy- Total, Other (right leg knee down amputated ). No: Pacemaker Amputation: Yes Fractures: No - *Social History Smoking Status: Never smoker Tobacco Type: cigarettes Alcohol Intake: never Alcohol Intake Frequency:: other Substance Use Type: denies use *Occupational Status:: retired Housing: house Household Members: none *Travel in the last 8 weeks: None Family Hx:: Diabetes Meds Home Medications Medication Instructions Recorded Confirmed Type nadolol 40 mg tablet 40 mg PO BID 08/12/17 01/14/19 History insulin glargine (U-100) 100 20 unit SUB-Q HS ml 09/02/17 01/14/19 History unit/mL (3 mL) subcutaneous pen lisinopril 20 mg tablet 20 mg PO BID tab 09/02/17 01/14/19 History gabapentin 300 mg capsule 300 mg PO TID cap 02/03/18 01/14/19 History Albuterol Sulfate [Proair Hfa 2 puffs IH QIDP PRN 01/14/19 01/14/19 History 90mcg/puff Inh] Aspirin [Low Dose Aspirin EC] 81 mg PO DAILY 01/14/19 01/14/19 History Clopidogrel Bisulfate [Plavix 75mg 75 mg PO DAILY 01/14/19 01/14/19 History Tab] Linaclotide [Linzess] 145 mcg PO DAILY 01/14/19 01/14/19 History Metformin HCl 500 mg PO TID 01/14/19 01/14/19 History Rosuvastatin Calcium 5 mg PO HS 01/14/19 01/14/19 History Zolpidem Tartrate [Ambien 10mg 10 mg PO HS 01/14/19 01/14/19 History tablet] diltiazem ER 120 mg 120 mg PO DAILY #30 cap 01/14/19 01/14/19 Rx capsule,extended release 12 hr Allergies Allergy/AdvReac Type Severity Reaction Status Date / Time Penicillins [PENICILLINS] Allergy Unknown Verified 02/10/18 09:54 Exam Vital signs and Labs for Last 24 Hours: Temp Pulse Resp BP Pulse Ox 98.3 F 91 H 17 112/54 L 94 L 01/14/19 16:00 01/14/19 16:00 01/14/19 16:00 01/14/19 16:00 01/14/19 16:00 Laboratory Results - last 24 hr 01/14/19 08:20: WBC 15.6 H, RBC 4.26, Hgb 10.8 L, Hct 35.4 L, MCV 83.1, MCH 25.4 L, MCHC 30.6 L, RDW 15.2, Plt Count 417, MPV 7.7, Neut % (Auto) 82.3 H, Lymph % (Auto) 10.6, [place] % (Auto) 6.5, Eos % (Auto) 0.5, Baso % (Auto) 0.2, Neut # (Auto) 12.8 H, Lymph # (Auto) 1.7, [place] # (Auto) 1.0, Eos # (Auto) 0.1, Baso # (Auto) 0.0, Total Counted 100, Neutrophils % (Manual) 85 H, Band Neutrophils % 2.0, Lymphocytes % (Manual) 5 L, Monocytes % (Manual) 7, Eosinophils % (Manual) 1, Platelet Estimate Normal, Hypochromasia 1+ 01/14/19 08:20: B-Natriuretic Peptide 221 H 01/14/19 08:26: Urine Color Yellow, Urine Appearance Cloudy, Urine pH 6.0, Ur Specific [place] 1.020, Urine Protein 1+, Urine Glucose (UA) Negative, Urine Ketones Negative, Urine Blood Trace-i, Urine Nitrate Negative, Urine Bilirubin Negative, Urine Urobilinogen 0.2, Ur Leukocyte Esterase 1+ A, Urine RBC None, Urine WBC 5-10, Ur Squamous Epith Cells 3-5, Urine Bacteria 4+ 01/14/19 09:55: PT 10.7, INR 1.03 01/14/19 09:55: Sodium 137, Potassium 4.7, Chloride 102, Carbon Dioxide 28, Anion Gap 11.7, BUN 19 H, Creatinine 1.10 H, Estimated Creat Clear 39, Estimated GFR 48 L, Est GFR ( Amer) 59, Glucose 48 L, Calcium 8.6, Total Bilirubin 0.2, AST 16, ALT 16, Alkaline Phosphatase 106, Total Creatine Kinase 69, CK-MB (CK-2) 1.1, CK-MB (CK-2) Rel Index 1.6, Troponin I < 0.02, Total Protein 8.2, Albumin 3.3 L, Globulin 4.9 H, Albumin/Globulin Ratio 0.7 L 01/14/19 09:55: Lactate 0.5 01/14/19 12:37: POC Glucose 129 H 01/14/19 16:14: POC Glucose 109 I & O for Last 24 hours: Intake & Output 01/12/19 01/13/19 01/14/19 01/15/19 11:59 11:59 11:59 11:59 Intake Total 216 / 216 Balance 216 / 216 Weight 122 lb 115 lb 3 oz - Constitutional no acute distress - *Routine HEENT Exam Head: Present: hematoma, scalp tenderness Eye: Present: EOMI ENT: Present: mucous membranes moist - *Routine Respiratory Exam Absent: accessory muscle use, rhonchi, wheezes - *Routine Cardiovascular Exam Present: RRR - *Routine Abdominal Exam Present: soft. Absent: tenderness - *Routine Extremities Exam Comments: R AKA stump intact, appears well-healed large hematoma over lateral aspect of R hip, slightly tender no lacerations/abrasions or other open wounds over R hip mild tenderness to palpation over R hip/groin unable to perform ROM R hip due to presence of fracture/pain skin of R AKA stump warm, pink, appears well-perfused - *Routine Skin Exam Present: intact, ecchymosis - *Routine Neurological Exam Present: moving all extremities, normal tone. Absent: sensory deficit, motor deficit Results - Labs Result Diagrams: 01/14/19 08:20 01/14/19 09:55 Labs: Abnormal lab results 01/14/19 01/14/19 01/14/19 Range/Units 08:20 08:20 08:26 WBC 15.6 H (4.8-10.8) K/mm3 Hgb 10.8 L (12.2-16.2) g/dL Hct 35.4 L (37.0-47.0) % MCH 25.4 L (27.0-31.2) pg MCHC 30.6 L (31.8-35.4) g/dL Neut % (Auto) 82.3 H (37.0-80.0) % Neut # (Auto) 12.8 H (1.8-7.8) K/mm3 Neutrophils % (Manual) 85 H (42-76) % Lymphocytes % (Manual) 5 L (10-50) % BUN (7-18) mg/dL Creatinine (0.55-1.02) mg/dL Estimated GFR (>60) ml/min Glucose (74-106) mg/dL POC Glucose (70-110) B-Natriuretic Peptide 221 H (0-100) pg/mL Albumin (3.4-5.0) gm/dL Globulin (1.3-3.2) gm/dl Albumin/Globulin Ratio (1.1-1.8) Ur Leukocyte Esterase 1+ A (Negative) 01/14/19 01/14/19 Range/Units 09:55 12:37 WBC (4.8-10.8) K/mm3 Hgb (12.2-16.2) g/dL Hct (37.0-47.0) % MCH (27.0-31.2) pg MCHC (31.8-35.4) g/dL Neut % (Auto) (37.0-80.0) % Neut # (Auto) (1.8-7.8) K/mm3 Neutrophils % (Manual) (42-76) % Lymphocytes % (Manual) (10-50) % BUN 19 H (7-18) mg/dL Creatinine 1.10 H (0.55-1.02) mg/dL Estimated GFR 48 L (>60) ml/min Glucose 48 L (74-106) mg/dL POC Glucose 129 H (70-110) B-Natriuretic Peptide (0-100) pg/mL Albumin 3.3 L (3.4-5.0) gm/dL Globulin 4.9 H (1.3-3.2) gm/dl Albumin/Globulin Ratio 0.7 L (1.1-1.8) Ur Leukocyte Esterase (Negative) H & H 01/14/19 Range/Units 08:20 Hgb 10.8 L (12.2-16.2) g/dL Hct 35.4 L (37.0-47.0) % Coagulation 01/14/19 Range/Units 09:55 INR 1.03 (0.9-1.1) All other labs normal. - Diagnostic results Hip x-ray: image reviewed (intertrochanteric femur fracture R hip; impacted with minimal displacement ) Hip CT: image reviewed (confirms findings of XR; minimally displaced, impacted fracture of R intertrochanteric region of femur ) Assessment and Plan (1) Intertrochanteric fracture of right hip Current visit: Yes Status: Acute Category: Medical Code(s): S72.141A - Displaced intertrochanteric fracture of right femur, initial encounter for closed fracture (2) Hematoma of right hip Current visit: Yes Status: Acute Category: Medical Code(s): S70.01XA - Contusion of right hip, initial encounter (3) Traumatic hematoma of forehead Current visit: Yes Status: Acute Category: Medical Code(s): S00.83XA - Contusion of other part of head, initial encounter (4) UTI (urinary tract infection) Current visit: Yes Status: Acute Category: Medical Code(s): N39.0 - Urinary tract infection, site not specified - Assessment and plan all Dx Assessment and Plan for all problems:: 73yo F with R intertrochanteric femur fracture -- I spoke with her son at length on the phone, and with her large hematoma overlying the surgical site, her current use of aspirin/plavix, current UTI and baseline non-ambulatory status, we will start with initial non-operative tr eatment for her fracture. If we manage her pain, particularly during transfers, she may do well. If she is in persistent pain and her hematoma improves, intramedullary nailing may help stabilize the fracture and increase comfort. -- will start with [place] po for pain and IV dilaudid for breakthrough -- may have PT/OT see her to work on mobilization/transfers -- I do not believe she will be able to safely return home to living alone in the near future and recommend starting to look at placement options -- will continue to follow closely
[2019-01-15 06:33] LABS: Basophils % 0.2 % (0.1-2.0); Eosinophils # 0.1 K/mm3 (0.0-0.4); Eosinophils % 1.3 % (0.1-12.0); Hematocrit 29.1 % (37.0-47.0); Lymphocytes # 1.5 K/mm3 (0.7-4.5); Lymphocytes % 13.6 % (10-50); Mean Corpuscular HGB Conc 29.1 g/dL (31.8-35.4); Mean Corpuscular Volume 86.1 fl (81-99); Mean Platelet Volume 7.6 fl (7.4-10.4); Monocytes # 1.1 K/mm3 (0.1-1.0); Monocytes % 10.8 % (1.7-9.3); Neutrophils # 7.8 K/mm3 (1.8-7.8); Platelet Count 309 K/mm3 (142-424); Red Blood Count 3.38 M/mm3 (4.20-5.40); Red Cell Distribution Width 15.2 % (11.5-17.5); White Blood Count 10.6 K/mm3 (4.8-10.8)
[2019-01-15 06:34] LABS: Albumin Level 2.5 gm/dL (3.4-5.0); Albumin/Globulin Ratio 0.6 (1.1-1.8); Anion Gap 9.9 mEq/L (5-15); Bilirubin,Total 0.3 mg/dL (0.2-1.0); Calcium 8.1 mg/dL (8.5-10.1); Globulin 4.1 gm/dl (1.3-3.2); Phosphorous 4.4 mg/dL (2.4-4.9); Total Protein,Serum 6.6 gm/dL (6.4-8.2)
[2019-01-15 06:54] LABS: Hemoglobin 8.5 g/dL (12.2-16.2)
--- NOTE | 2019-01-15 07:53 | Progress Note ---
Internal Medicine - PN: Subj *Date: 01/15/19 *Time: 08:31 Interval history: Patient with no acute events overnight. Pain remains a problem this morning. Afebrile, normotensive. Responds to questions but easily is distracted and confused. Able to obtain more history from patient this morning. She states she did fall getting out of bed trying to get her wheelchair. Lives independently and wants to remain that way. Has no interest in going to a intermediate at this time. Concerned she does not understand the gravity of that decision and the severity of her condition. Exam Vital signs and Labs for Last 24 Hours: Temp Pulse Resp BP Pulse Ox 100.0 F H 84 16 115/55 L 89 L 01/15/19 04:00 01/15/19 06:37 01/15/19 04:00 01/15/19 04:00 01/15/19 06:37 Laboratory Results - last 24 hr 01/14/19 08:20: WBC 15.6 H, RBC 4.26, Hgb 10.8 L, Hct 35.4 L, MCV 83.1, MCH 25.4 L, MCHC 30.6 L, RDW 15.2, Plt Count 417, MPV 7.7, Neut % (Auto) 82.3 H, Lymph % (Auto) 10.6, [place] % (Auto) 6.5, Eos % (Auto) 0.5, Baso % (Auto) 0.2, Neut # (Auto) 12.8 H, Lymph # (Auto) 1.7, [place] # (Auto) 1.0, Eos # (Auto) 0.1, Baso # (Auto) 0.0, Total Counted 100, Neutrophils % (Manual) 85 H, Band Neutrophils % 2.0, Lymphocytes % (Manual) 5 L, Monocytes % (Manual) 7, Eosinophils % (Manual) 1, Platelet Estimate Normal, Hypochromasia 1+ 01/14/19 08:20: B-Natriuretic Peptide 221 H 01/14/19 08:26: Urine Color Yellow, Urine Appearance Cloudy, Urine pH 6.0, Ur Specific [place] 1.020, Urine Protein 1+, Urine Glucose (UA) Negative, Urine Ketones Negative, Urine Blood Trace-i, Urine Nitrate Negative, Urine Bilirubin Negative, Urine Urobilinogen 0.2, Ur Leukocyte Esterase 1+ A, Urine RBC None, Urine WBC 5-10, Ur Squamous Epith Cells 3-5, Urine Bacteria 4+ 01/14/19 09:55: PT 10.7, INR 1.03 01/14/19 09:55: Sodium 137, Potassium 4.7, Chloride 102, Carbon Dioxide 28, Anion Gap 11.7, BUN 19 H, Creatinine 1.10 H, Estimated Creat Clear 39, Estimated GFR 48 L, Est GFR ( Amer) 59, Glucose 48 L, Calcium 8.6, Total Bilirubin 0.2, AST 16, ALT 16, Alkaline Phosphatase 106, Total Creatine Kinase 69, CK-MB (CK-2) 1.1, CK-MB (CK-2) Rel Index 1.6, Troponin I < 0.02, Total Protein 8.2, Albumin 3.3 L, Globulin 4.9 H, Albumin/Globulin Ratio 0.7 L 01/14/19 09:55: Lactate 0.5 01/14/19 12:37: POC Glucose 129 H 01/14/19 16:14: POC Glucose 109 01/14/19 20:20: POC Glucose 102 01/15/19 05:30: POC Glucose 137 H 01/15/19 05:50: WBC 10.6 D, RBC 3.38 L, Hgb 8.5 L D, Hct 29.1 L, MCV 86.1, MCH 25.0 L, MCHC 29.1 L, RDW 15.2, Plt Count 309 D, MPV 7.6, Neut % (Auto) 74.0, Lymph % (Auto) 13.6, [place] % (Auto) 10.8 H, Eos % (Auto) 1.3, Baso % (Auto) 0.2, Neut # (Auto) 7.8, Lymph # (Auto) 1.5, [place] # (Auto) 1.1 H, Eos # (Auto) 0.1, Baso # (Auto) 0.0 01/15/19 05:50: Sodium 134 L, Potassium 5.9 H D, Chloride 103, Carbon Dioxide 27, Anion Gap 9.9, BUN 21 H, Creatinine 1.36 H D, Estimated Creat Clear 30, Estimated GFR 38 L, Est GFR ( Amer) 46 L D, Glucose 157 H D, Calcium 8.1 L, Phosphorus 4.4, Magnesium 1.6, Total Bilirubin 0.3, AST 20, ALT 13, Alkaline Phosphatase 84, Total Protein 6.6, Albumin 2.5 L D, Globulin 4.1 H, Albumin/Globulin Ratio 0.6 L I & O for Last 24 hours: Intake & Output 01/12/19 01/13/19 01/14/19 01/15/19 23:59 23:59 23:59 23:59 Intake Total 216 / 416 1651 / 1651 Output Total 800 / 800 200 / 200 Balance -584 / -384 1451 / 1451 Weight 52.248 kg 53.552 kg Microbiology Reports for the Last 24 Hours: Microbiology 01/14/19 08:26 Urine,Catheterized Urine Culture - Preliminary Gram Negative Rods Narrative: - Constitutional mild distress, thin, chronically ill appearing, somnolent - *Routine HEENT Exam Head: Present: normocephalic Comments: No interval change in large hematoma right forehead, bruising on right cheek, poor dentition with moist mucous membranes. - *Routine Neck Exam Present: supple. Absent: JVD - *Routine Respiratory Exam Present: CTA bilaterally. Absent: prolonged expiratory phase, crackles - *Routine Cardiovascular Exam Present: RRR, Normal S1. Absent: murmur - *Routine Abdominal Exam Present: soft, normoactive bowel sounds - *Routine Extremities Exam Absent: cyanosis, clubbing, edema Comments: Pulses thready in left lower extremity. Right lower extremity absent proximal to knee, ecchymoses on right lateral hip - *Routine Skin Exam Present: intact, pallor. Absent: cyanosis, erythema - *Routine Neurological Exam Present: altered mental status Assessment and Plan (1) Fall at home Current visit: Yes Status: Acute Category: Medical Code(s): W19.XXXA - Unspecified fall, initial encounter; Y92.009 - Unspecified place in unspecified non-institutional (private) residence as the place of occurrence of the external cause (2) Hematoma of right hip Current visit: Yes Status: Acute Category: Medical Code(s): S70.01XA - Contusion of right hip, initial encounter (3) Intertrochanteric fracture of right hip Current visit: Yes Status: Acute Qualifiers: Encounter type: initial encounter Fracture type: closed Fracture alignment: nondisplaced Qualified Code(s): S72.144A - Nondisplaced intertrochanteric fracture of right femur, initial encounter for closed fracture Category: Medical Code(s): S72.141A - Displaced intertrochanteric fracture of right femur, initial encounter for closed fracture (4) Traumatic hematoma of forehead Current visit: Yes Status: Acute Category: Medical Code(s): S00.83XA - Contusion of other part of head, initial encounter (5) UTI (urinary tract infection) Current visit: Yes Status: Acute Category: Medical Code(s): N39.0 - Urinary tract infection, site not specified (6) HTN (hypertension) Current visit: No Status: Chronic Qualifiers: Hypertension type: essential hypertension Qualified Code(s): I10 - Essential (primary) hypertension Category: Medical Code(s): I10 - Essential (primary) hypertension (7) Diabetes mellitus Current visit: No Status: Chronic Qualifiers: Diabetes mellitus type: type 2 Diabetes mellitus termite treater insulin use: unspecified termite treater insulin use status Diabetes mellitus complication status: with circulatory complication Diabetes mellitus complication detail: with other circulatory complications Qualified Code(s): E11.59 - Type 2 diabetes mellitus with other circulatory complications Category: Medical Code(s): E11.9 - Type 2 diabetes mellitus without complications (8) HLD (hyperlipidemia) Current visit: No Status: Chronic Qualifiers: Hyperlipidemia type: other hyperlipidemia Qualified Code(s): E78.49 - Other hyperlipidemia; E78.4 - Other hyperlipidemia Category: Medical Code(s): E78.5 - Hyperlipidemia, unspecified (9) PAD (peripheral artery disease) Current visit: No Status: Chronic Category: Medical Code(s): I73.9 - Peripheral vascular disease, unspecified (10) Sepsis Current visit: Yes Status: Resolved Qualifiers: Sepsis type: sepsis due to unspecified organism Sepsis acute organ dysfunction status: without acute organ dysfunction Qualified Code(s): A41.9 - Sepsis, unspecified organism Category: Medical Code(s): A41.9 - Sepsis, unspecified organism (11) Anemia Current visit: Yes Status: Acute Qualifiers: Anemia type: other cause Category: Medical Code(s): D64.9 - Anemia, unspecified Anemia due to blood loss from hematomas and anticoagulants (12) TONY (acute kidney injury) Current visit: Yes Status: Acute Category: Medical Code(s): N17.9 - Acute kidney failure, unspecified Kidney injury with greater than 20% increase in creatinine. Baseline appears to be 1.1. Suspect due to volume shift with hematomas. Monitor for improvement with volume repletion (13) Hyperkalemia Current visit: Yes Status: Acute Category: Medical Code(s): E87.5 - Hyperkalemia Suspect due to TONY. Additionally in the setting of hematomas, hemolysis can increase potassium levels. Will monitor for improvement of fluid resuscitation improvement in kidney function - Assessment and plan all Dx Assessment and Plan for all problems:: 73-year-old female status post fracture of right hip, hematoma to right upper arm and right head. Medical management of fracture at this time with no plan for surgical intervention due to patient's comorbidities. Additionally patient has had new oxygen requirement, does not wear oxygen at home. Will resume breathing treatments. At this time urine culture showing gram-negative rods. Will resume Levaquin for UTI. Continues to require inpatient management. Patient condition is serious. Prognosis poor. Strong concern about patient's ability to go home and be stable. Have low suspicion for scalable status at this time. Suspect patient may benefit more from hospice referral in the setting of her advanced age, significant comorbidities, fracture that is non- operative given mortality with nonoperative hip fractures is north of 50% at a year.
--- NOTE | 2019-01-15 16:12 | Progress Note ---
[facility] Anesthesia Checklist - Patient Identification Patient Identification: Arm Band, Family, Verbal (Name & ) - Structural Data Admitted From: Inpatient Planned Operative Procedure/s: hip gamma nail Consent for Planned Operative Procedure(s) Verified: Yes Verified Documents: History and Physical - NPO Status Verified Time NPO: 00:00 - Additional verifications Patient : No Anesthesia Reactions: No Hx Blood Transfusions: No Blood Transfusion Reaction: No Cephalosporin Allergy: No Previous Colonoscopy: No - Cardiovascular Assessment Heart Sounds: S1 & S2 Pulse Strength: Baseline Pulse Rhythm: Regular Peripheral Edema: No - Airway Assessment C-Spine Mobility Assessed: Yes TMJ Mobility Assessed: Yes Dentition: Poor Dentition - Neurological Assessment Level of Consciousness: Awake, Appropriate, Drowsy Hx Seizures: No Numbness or tingling in extremities: No - Anesthesia Plan Anesthesia Risk discussed: Yes Anesthesia Plan: Verified ASA Class: III Anesthesia Type: General [facility] History I have reviewed the patient's past medical history: Yes Medical History: Reports:: Diabetes Mellitus Type 2, Hyperlipidemia, Hyperten mirna Denies:: Cancer, Diabetes Mellitus Type 1, Internal Pacemaker, MRSA, Seizures *Have you ever received a pneumonia vaccine?: Yes *Have you received a flu vaccine this season?: Yes Other Medical History: Reports: Arthritis Anesthesia experience/problems:: none Other Surgeries: Yes: Cardiac Catheterization (08/22/17 2 stents), Hysterectomy- Total, Other (right leg knee down amputated ). No: Pacemaker Amputation: Yes Fractures: No - *Social History Smoking Status: Never smoker Tobacco Type: cigarettes Alcohol Intake: never Alcohol Intake Frequency:: other Substance Use Type: denies use *Occupational Status:: retired Housing: house Household Members: none *Travel in the last 8 weeks: None Family Hx:: Diabetes
--- NOTE | 2019-01-15 16:25 | Cardiology Report ---
APPROVED REPORT EXAM: Comprehensive 2D, Doppler, and color-flow Echocardiogram Tugboat Pilot: Brianne Escalera RDCS Ht: 5 ft 7 in Wt: 118lbs BSA: 1.62 BP: 140/80 mmHg Indications: FX HIP SEPSIS HTN DM HLP 2D Dimensions LVOT 1.90 cm (M/F) 1.5-2.5 M-Mode Dimensions RVDd 2.10 cm (0.9-2.6)LA Diam 2.70 cm (1.9-4.0) LVDd 3.60 cm (3.5-5.7)Ao Diam 3.10 cm (2.0-3.7) LVDs 2.40 cm (3.5-5.7)AV Cusp 1.90 cm (1.5-2.6) IVSd 1.00 cm (0.6-1.1)PWd 0.80 cm (0.6-1.1) EF (Teich) 62.90% FS 33.30% EDV (Teich) 54.40 mLESV (Teich) 20.20 mL Tricuspid Valve TR P. Vnzzabdi702.00 cm/sRAP Estimate 10.00 mmHg RVSP 67.00 mmHg Left Ventricle Left atrium is mildly enlarged, left ventricle is normal size, mild concentric left ventricular hypertrophy, visually estimated ejection fraction 55% with no regional wall motion abnormality, there is flattening of the intraventricular septum during systole and diastole consistent with pressure and volume overload on right ventricle. Diastolic parameters are inconclusive. Doppler evidence of raise left atrial pressure. Right Ventricle Right atrium and right ventricle moderately large, contractility of the right ventricle is moderately reduced. Aortic Valve Aortic valve is thickened and calcified leaflet continue to display mobility, there is no aortic stenosis aortic insufficiency. Mitral Valve Mitral valve is minimally thickened, there is mild mitral regurgitation. Tricuspid Valve Tricuspid valve leaflets are minimally thickened, there is no tricuspid stenosis, there is moderate tricuspid regurgitation, calculated right ventricular systolic pressure is 69 mmHg consistent with moderate pulmonary hypertension. Inferior vena cava is mildly dilated with normal inspiratory collapse. Pulmonic Valve Pulmonic valve is poorly visualized. Great Vessels Aortic root is normal size. Pericardium No significant pericardial effusion noted. Conclusion 1. Biatrial enlargement, normal left ventricular size, mild concentric left ventricular hypertrophy, visually estimated ejection fraction 55% with no regional wall motion abnormality, diastolic parameters are inconclusive. There is flattening of the intraventricular septum during systole and diastole consistent with both pressure and volume overload on right ventricle. 2. Mild mitral and tricuspid regurgitation, calculated right ventricular systolic pressure 69 mmHg consistent with moderate pulmonary hypertension, inferior vena cava is mildly dilated with normal inspiratory collapse. 3. Moderately enlarged right ventricle with moderate reduced contractility. 4. No significant pericardial effusion noted. Electronically signed by : Fabio Gardner, 01/15/2019 16:24:42
--- NOTE | 2019-01-15 19:04 | Progress Note ---
[facility] Anesthesia Record Part I Intake, IV Amount: 1,350 Estimated blood loss (mL): 50 Urine output (mL): 350 Blood Products used (#): none Blood Pressure: 87/40 SaO2: 90 Pulse Rate: 76 Respiratory Rate: 20 Temperature: 98.8 F Patient is:: Mask O2, Stable, Somnolent Stable to PACU at:: 18:59
--- NOTE | 2019-01-15 19:05 | Progress Note ---
[facility] Anesthesia Record Part II Discharge Time: 19:29 Destination: Medical Surgical Department PACU nurse assessment reviewed?: Yes Patient Condition:: Good Anesthesia Complications:: None Swallowing reflex intact?: Yes Cyanosis?: No
--- NOTE | 2019-01-15 19:36 | Progress Note ---
Subjective Date: 01/15/19 Time: 19:30 Principal diagnosis: R intertrochanteric femur fracture Interval history: The patient was seen earlier today and was not doing well from a pain perspective. Initial non-operative treatment was tried but the patient was in constant pain. I discussed treatment options with her son, who was at bedside, and explained that her prognosis is poor with her medical comorbidities, but surgery may provide her palliation/pain relief. Although her thigh hematoma is concerning, I believed we could work around this in surgery. After a discussion regarding the surgical plan and the risks of the procedure, her son agreed with pursuing surgery for pain control. Post-operatively we discussed doing physical therapy, but as a non-ambulator her rehab potential is low. She was on Levaquin pre-op, but clindamycin was added for ritika-op prophylaxis. Surgery was performed this afternoon and went well, with no immediately ritika-op complications. She is recovering comfortably now in the PACU. PN: Obj Ex Vital signs: Temp Pulse Resp BP Pulse Ox 98.8 F 76 20 87/40 L 92 L 01/15/19 19:04 01/15/19 19:04 01/15/19 19:04 01/15/19 19:04 01/15/19 15:56 - Constitutional no acute distress - Routine HEENT Exam Head: Present: hematoma - Routine Respiratory Exam Present: crackles, diminished air movement - Routine Extremities Exam Comments: R hip dressings c/d/i patient sleeping, still sedated from surgery, but arousable on non-rebreather mask; 10L O2 vitals stable in PACU: HR 70, BP 130/56, O2 sat 90% - Urinary Catheter Management Street Cath placed during this visit: yes Urethral indwelling: Yes Reason for continuing: Invasive procedure Insertion date: 01/14/19 Insertion time: 08:35 Progress Note: A&P (1) Fall at home Status: Acute Current Visit: Yes (2) Hematoma of right hip Status: Acute Current Visit: Yes (3) Intertrochanteric fracture of right hip Status: Acute Current Visit: Yes (4) Traumatic hematoma of forehead Status: Acute Current Visit: Yes (5) UTI (urinary tract infection) Status: Acute Current Visit: Yes (6) HTN (hypertension) Status: Chronic Current Visit: No (7) Diabetes mellitus Status: Chronic Current Visit: No (8) HLD (hyperlipidemia) Status: Chronic Current Visit: No (9) PAD (peripheral artery disease) Status: Chronic Current Visit: No (10) Sepsis Status: Resolved Current Visit: Yes (11) Anemia Status: Acute Current Visit: Yes (12) TONY (acute kidney injury) Status: Acute Current Visit: Yes (13) Hyperkalemia Status: Acute Current Visit: Yes Assessment and Plan for All Diagnoses:: 73yo F POD 0 s/p intramedullary nail (short gamma nail) RIGHT femur for intertrochanteric femur fracture -- surgery went well, no immediate ritika-operative complications; will be transferred back to the floor for continuing post-op care -- will continue clindamycin x2 days; this is longer than the typical post-op prophy course, but we inserted a maya pin into the distal femur in order to use the fracture table, and although this was inserted under sterile conditions, I would like to continue antibiotics a little longer -- PT to eval/treat -- pain control: avoid narcotics if possible -- dispo planning: likely to SNF
[2019-01-15 20:23] LABS: Basophils % 0.2 % (0.1-2.0); Eosinophils # 0.2 K/mm3 (0.0-0.4); Eosinophils % 0.9 % (0.1-12.0); Hematocrit 30.4 % (37.0-47.0); Lymphocytes # 1.9 K/mm3 (0.7-4.5); Lymphocytes % 11.2 % (10-50); Mean Corpuscular HGB Conc 29.5 g/dL (31.8-35.4); Mean Platelet Volume 7.7 fl (7.4-10.4); Monocytes # 1.3 K/mm3 (0.1-1.0); Monocytes % 7.9 % (1.7-9.3); Neutrophils # 13.5 K/mm3 (1.8-7.8); Neutrophils % 79.8 % (37.0-80.0); Platelet Count 207 K/mm3 (142-424); Red Cell Distribution Width 15.2 % (11.5-17.5)
--- NOTE | 2019-01-15 20:29 | Operative Note ---
Date of procedure: 01/16/19 Pre-op Diagnosis:: RIGHT intertrochanteric femur fracture Post-op Diagnosis:: RIGHT intertrochanteric femur fracture Procedure performed:: intramedullary nail RIGHT femur Surgeon:: Mami Alfonso MD Financial Aid Administrator(s):: George Griffith MD JANITOR:: Juan Latrice Anesthesia: GETA, local Estimated blood loss (mL): 25 Clinical Note:: 73-year-old female admitted through the ER yesterday for right hip fracture sustained earlier that morning. 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 Yesterday she fell while getting out of bed into her chair. She lives alone but her son lives close by and helps care for her. When she fell, she sustained large hematomas to the right hip and the scalp, as well as a right intertrochanteric femur fracture. Due to her medical comorbidities, baseline non-ambulatory status, and hematoma over the surgical site, an initial trial of non-operative therapy was attempted; in the first 24 hours she was in significant pain. Due to the pain she was in, an intramedullary nail was p roposed for palliation. The risks, benefits and alternatives to the surgery were discussed with her son, who vocalized understanding and provided informed consent for the procedure. He vocalized understanding that the goal of the procedure is palliative, with pain reduction and assistance for transfers in/out of bed and her chair. Dr. Jackson also spoke with him at length and a pre- operative echo was obtained to evaluate baseline cardiac function. Operative findings:: Corrina gamma nail (short): 11 x 180mm lag screw = 80mm distal interlocking screw = 30mm Operative note:: The patient was identified in preoperative holding and the right hip signed by myself. The patient was then taken to the operating room where 900mg clindamycin was infused and general anesthesia induced. Spinal was not administered because the patient is on plavix and aspirin at baseline and it is unknown when her last dose was. Once the patient was asleep, she was transferred to the fracture table, where the left lower extremity was secured in a well- padded leg lópez with the hip abducted and externally rotated. The right leg, being amputated above the knee, could not be affixed to the baseplate of the fracture table as usual, so the stump was prepped with chlorhexidine and a maya pin place through the distal portion of the femur/stump using sterile technique and c-arm. Sterile cord from a finger trap set was then tied to the maya pin on both sides and tied to the base plate. Traction was then able to be applied to the stump. Reduction was difficult due to the patient's amputation and the nature of her traction, but little reduction was actually needed. Her proximal humerus was in a high degree of valgus but this was not corrected given she does not bear weight on this limb; we chose to use a 130 degree implant. Next, the right hip was prepped and draped in the usual sterile fashion; this was performed with a chlorhexidine prep and a [place] shower curtain drape. Timeout was performed, identifying the correct patient, correct procedure and correct site. The procedure was begun by using a free guide pin held over the hip to localize the level of the greater trochanter. Approximately 3cm proximal to this, a longitudinal incision was made on the lateral aspect of the right hip approximately 3-4cm long. The guidepin was placed over the tip of the greater trochanter and fluoroscopy used to confirm the appropriate starting point. The guidepin was advanced under power into the proximal femur and an entry reamer was used to perforate the near cortex, creating an entry hole in the tip of the greater trochanter. A 11 x 180mm nail was advanced until well-seated. To place the proximal edge of the nail at the appropriate height, the lag screw would be well inferior to the femoral neck, so the nail was left slightly proud; because she is a non-ambulator the nail wound only be a few millimeters proud, we decided to accept this. The appropriate drill guide was then placed through the side arm on the nail, through which to place the lag screw. A guidepin was threaded from the lateral aspect of the thigh through this drill guide and into the femoral neck. It was advanced proximally until the desired tip apex distance was met on both AP and lateral fluoro views. The measuring tool was used to determine a size 80mm lag screw was needed; the screw path was drilled and a 10.5mm diameter, 80mm long lag screw was advanced into the femoral neck and head. It appeared to be appropriately positioned on both AP and lateral x-ray. Next, the set screw was placed into the top of the nail and secured in place tightly. To secure the distal aspect of the nail, one distal interlocking screws was placed in a static position. Using the appropriate drill sleeve, and measuring off the calibrated drill bit, a 5.0 x 30mm screw was placed in the distal interlocking hole in the nail. This completed the procedure and the side arm was removed from the nail, final x-rays taken with confirmation of good positioning of both AP and lateral x-rays. All incisions were irrigated copiously with sterile saline and the wounds closed in a layered fashion. The fascia/IT band were closed with 0 Vicryl, followed by 2-0 Vicryl on the subcutaneous tissue, and steven for the skin. The wounds were dressed with Xeroform, 4 x 4's and tegaderm. The maya pin was removed from the distal stump and holes left open, covered with Xeroform, 4x4s and an ROBERTO wrap. The patient was then transferred back to her cart and taken to PACU in good co ndition. There were no complications during this case. Tourniquet time (min): 0 Condition: stable Disposition: PACU Specimens:: none Complications:: none
[2019-01-15 20:36] LABS: Eosinophils % 1 % (0-3); Lymphocytes % 14 % (10-50); Monocytes % 7 % (2-9); Neutrophils % 71 % (42-76); Total Cells Counted 100
[2019-01-15 20:37] LABS: Hypochromasia 2+; Rouleaux 2+
[2019-01-15 20:46] LABS: Albumin Level 2.3 gm/dL (3.4-5.0); Albumin/Globulin Ratio 0.6 (1.1-1.8); Bilirubin,Total 0.2 mg/dL (0.2-1.0); Calcium 8.1 mg/dL (8.5-10.1); Total Protein,Serum 6.3 gm/dL (6.4-8.2)
[2019-01-15 21:02] LABS: Anion Gap 11.9 mEq/L (5-15)
[2019-01-16 00:07] LABS: Anion Gap 12.8 mEq/L (5-15); Calcium 8.5 mg/dL (8.5-10.1)
[2019-01-16 05:54] LABS: Basophils % 0.1 % (0.1-2.0); Eosinophils % 0.2 % (0.1-12.0); Lymphocytes # 1.4 K/mm3 (0.7-4.5); Lymphocytes % 10.2 % (10-50); Mean Corpuscular HGB Conc 29.9 g/dL (31.8-35.4); Mean Corpuscular Volume 85.2 fl (81-99); Mean Platelet Volume 7.7 fl (7.4-10.4); Monocytes # 1.3 K/mm3 (0.1-1.0); Monocytes % 9.6 % (1.7-9.3); Neutrophils # 10.7 K/mm3 (1.8-7.8); Neutrophils % 79.8 % (37.0-80.0); Platelet Count 277 K/mm3 (142-424); White Blood Count 13.3 K/mm3 (4.8-10.8)
[2019-01-16 05:56] LABS: Hematocrit 24.7 % (37.0-47.0); Hemoglobin 7.4 g/dL (12.2-16.2)
[2019-01-16 06:10] LABS: Albumin Level 2.2 gm/dL (3.4-5.0); Albumin/Globulin Ratio 0.7 (1.1-1.8); Bilirubin,Total 0.2 mg/dL (0.2-1.0); Globulin 3.3 gm/dl (1.3-3.2); Total Protein,Serum 5.5 gm/dL (6.4-8.2)
--- NOTE | 2019-01-16 07:29 | Progress Note ---
Internal Medicine - PN: Subj *Date: 01/16/19 *Time: 08:37 Interval history: Ms. Teague went to surgery yesterday for fixation of her right intertrochanteric fracture. Tolerated surgery well however had complications in the postop setting. Had respiratory decline and hypotension necessitating intubation. Responded well to intubation and improved ventilation with pentecostalism of normal blood pressure. Was intubated for approximately 3 hours during which time her alertness improved, she follow directions, was able to cough, stick her tongue out, and answer questions with head nods. Due to significant improvement decision was made to extubate rather than sedate her and continue to keep her intubated. Patient tolerated extubation to BiPAP for about 30 minutes with transition to nasal cannula oxygen at 4 L. She has been stable on 4 L nasal cannula oxygen all night and maintained soft but appropriate blood pressures. Of note, in the postop setting she was noted to have hyperkalemia. This was treated with Lasix, calcium, and dextrose and insulin. Resolved by this morning. This morning patient is alert and oriented to self. Has poor recollection of events from yesterday evening. Tolerated small bites of breakfast. Is still in pain but interval improvement from preop setting. Is asking for her son this morning. Denies any upset stomach, chest pain, worsening shortness of breath. Complaining of pain in right hip and general soreness on her right side. Exam Vital signs and Labs for Last 24 Hours: Temp Pulse Resp BP Pulse Ox 99.9 F H 80 12 110/40 L 100 01/16/19 05:00 01/16/19 06:45 01/16/19 06:45 01/16/19 06:45 01/16/19 06:45 Laboratory Results - last 24 hr 01/14/19 08:26: Urine Color Yellow, Urine Appearance Cloudy, Urine pH 6.0, Ur Specific [place] 1.020, Urine Protein 1+, Urine Glucose (UA) Negative, Urine Ketones Negative, Urine Blood Trace-i, Urine Nitrate Negative, Urine Bilirubin Negative, Urine Urobilinogen 0.2, Ur Leukocyte Esterase 1+ A, Urine RBC None, Urine WBC 5-10, Ur Squamous Epith Cells 3-5, Urine Bacteria 4+ 01/15/19 12:11: POC Glucose 167 H 01/15/19 15:54: POC Glucose 228 H 01/15/19 16:30: POC Glucose 176 H 01/15/19 19:06: POC Glucose 130 H 01/15/19 20:15: WBC 17.0 H D, RBC 3.50 L, Hgb 9.0 L, Hct 30.4 L, MCV 87.0, MCH 25.7 L, MCHC 29.5 L, RDW 15.2, Plt Count 207 D, MPV 7.7, Neut % (Auto) 79.8, Lymph % (Auto) 11.2, Boundary % (Auto) 7.9, Eos % (Auto) 0.9, Baso % (Auto) 0.2, Neut # (Auto) 13.5 H, Lymph # (Auto) 1.9, Boundary # (Auto) 1.3 H, Eos # (Auto) 0.2, Baso # (Auto) 0.0, Total Counted 100, Neutrophils % (Manual) 71, Band Neutrophils % 7.0, Lymphocytes % (Manual) 14, Monocytes % (Manual) 7, Eosinophils % (Manual) 1, Platelet Estimate Normal, Hypochromasia 2+, Rouleaux 2+ 01/15/19 20:15: Sodium 134 L, Potassium 6.9 H*, Chloride 105, Carbon Dioxide 24, Anion Gap 11.9, BUN 24 H, Creatinine 1.63 H, Estimated Creat Clear 25, Estimated GFR 31 L, Est GFR ( Amer) 37 L, Glucose 170 H, Calcium 8.1 L, Total Bilirubin 0.2, AST 6 L D, ALT 14, Alkaline Phosphatase 84, Total Protein 6.3 L, Albumin 2.3 L, Globulin 4.0 H, Albumin/Globulin Ratio 0.6 L 01/15/19 20:27: Blood Type O Positive, Antibody Screen Negative, Crossmatch (AHG) See Detail 01/15/19 22:03: POC Glucose 254 H 01/15/19 23:50: Sodium 134 L, Potassium 5.8 H, Chloride 103, Carbon Dioxide 24, Anion Gap 12.8, BUN 26 H, Creatinine 1.66 H, Estimated Creat Clear 24, Estimated GFR 30 L, Est GFR ( Amer) 36 L, Glucose 210 H D, Calcium 8.5 01/16/19 05:25: WBC 13.3 H, RBC 2.90 L, Hgb 7.4 L*, Hct 24.7 L, MCV 85.2, MCH 25.5 L, MCHC 29.9 L, RDW 15.0, Plt Count 277 D, MPV 7.7, Neut % (Auto) 79.8, Lymph % (Auto) 10.2, Boundary % (Auto) 9.6 H, Eos % (Auto) 0.2, Baso % (Auto) 0.1, Neut # (Auto) 10.7 H, Lymph # (Auto) 1.4, Boundary # (Auto) 1.3 H, Eos # (Auto) 0.0, Baso # (Auto) 0.0 01/16/19 05:25: Sodium 136, Potassium 5.0, Chloride 103, Carbon Dioxide 26, Anion Gap 12.0, BUN 24 H, Creatinine 1.43 H, Estimated Creat Clear 29, Estimated GFR 36 L, Est GFR ( Amer) 43 L, Glucose 136 H D, Calcium 8.0 L, Total Bilirubin 0.2, AST 14 L D, ALT 13, Alkaline Phosphatase 83, Total Protein 5.5 L, Albumin 2.2 L, Globulin 3.3 H, Albumin/Globulin Ratio 0.7 L I & O for Last 24 hours: Intake & Output 01/13/19 01/14/19 01/15/19 01/16/19 23:59 23:59 23:59 23:59 Intake Total 216 / 416 3001 / 3001 850 / 850 Output Total 800 / 800 475 / 565 1025 / 1025 Balance -584 / -384 2526 / 2436 -175 / -175 Weight 52.248 kg 53.552 kg 55.48 kg Microbiology Reports for the Last 24 Hours: Microbiology 01/14/19 08:26 Urine,Catheterized Urine Culture - Preliminary Klebsiella pneumoniae Gram Positive Cocci 01/15/19 21:00 Sputum - Endotracheal Tube Aspirate Gram Stain - Final Narrative: - Constitutional mild distress, thin, chronically ill appearing, alert and oriented to person. Nasal cannula in place - *Routine HEENT Exam Head: Present: normocephalic Comments: Slight decrease in right forehead hematoma, poor dentition with moist mucous membranes. - *Routine Neck Exam Present: supple. Absent: JVD - *Routine Respiratory Exam Present: Coarse breath sounds bilaterally with rhonchi and expiratory wheeze. Fair air movement in the upper lobes with diminished bilateral lower lobe air movement. - *Routine Cardiovascular Exam Present: RRR, Normal S1. Absent: murmur - *Routine Abdominal Exam Present: soft, normoactive bowel sounds - *Routine Extremities Exam Absent: cyanosis, clubbing, edema Comments: Pulses thready in left lower extremity. Right lower extremity absent proximal to knee, ecchymoses on right lateral hip, postsurgical bandages in place - *Routine Skin Exam Present: intact, pallor. Absent: cyanosis, erythema - *Routine Neurological Exam Present: Alert, oriented to person. Answering questions appropriately Assessment and Plan (1) Fall at home Current visit: Yes Status: Acute Category: Medical Code(s): W19.XXXA - Unspecified fall, initial encounter; Y92.009 - Unspecified place in unspecified non-institutional (private) residence as the place of occurrence of the external cause (2) Hematoma of right hip Current visit: Yes Status: Acute Category: Medical Code(s): S70.01XA - Contusion of right hip, initial encounter (3) Intertrochanteric fracture of right hip Current visit: Yes Status: Acute Qualifiers: Encounter type: initial encounter Fracture type: closed Fracture alignment: nondisplaced Qualified Code(s): S72.144A - Nondisplaced intertrochanteric fracture of right femur, initial encounter for closed fracture Category: Medical Code(s): S72.141A - Displaced intertrochanteric fracture of right femur, initial encounter for closed fracture (4) Traumatic hematoma of forehead Current visit: Yes Status: Acute Category: Medical Code(s): S00.83XA - Contusion of other part of head, initial encounter (5) UTI (urinary tract infection) Current visit: Yes Status: Acute Category: Medical Code(s): N39.0 - Urinary tract infection, site not specified (6) HTN (hypertension) Current visit: No Status: Chronic Qualifiers: Hypertension type: essential hypertension Qualified Code(s): I10 - Essential (primary) hypertension Category: Medical Code(s): I10 - Essential (primary) hypertension (7) Diabetes mellitus Current visit: No Status: Chronic Qualifiers: Diabetes mellitus type: type 2 Diabetes mellitus continuous churn buttermaker insulin use: unspecified care home insulin use status Diabetes mellitus complication status: with circulatory complication Diabetes mellitus complication detail: with other circulatory complications Qualified Code(s): E11.59 - Type 2 diabetes mellitus with other circulatory complications Category: Medical Code(s): E11.9 - Type 2 diabetes mellitus without complications (8) HLD (hyperlipidemia) Current visit: No Status: Chronic Qualifiers: Hyperlipidemia type: other hyperlipidemia Qualified Code(s): E78.49 - Other hyperlipidemia; E78.4 - Other hyperlipidemia Category: Medical Code(s): E78.5 - Hyperlipidemia, unspecified (9) PAD (peripheral artery disease) Current visit: No Status: Chronic Category: Medical Code(s): I73.9 - Peripheral vascular disease, unspecified (10) Sepsis Current visit: Yes Status: Resolved Qualifiers: Sepsis type: sepsis due to unspecified organism Sepsis acute organ dysfunction status: without acute organ dysfunction Qualified Code(s): A41.9 - Sepsis, unspecified organism Category: Medical Code(s): A41.9 - Sepsis, unspecified organism (11) Anemia Current visit: Yes Status: Acute Qualifiers: Anemia type: other cause Category: Medical Code(s): D64.9 - Anemia, unspecified (12) TONY (acute kidney injury) Current visit: Yes Status: Acute Category: Medical Code(s): N17.9 - Acute kidney failure, unspecified (13) Hyperkalemia Current visit: Yes Status: Acute Category: Medical Code(s): E87.5 - Hyperkalemia - Assessment and plan all Dx Assessment and Plan for all problems:: 74-year-old female with multiple comorbidities status post surgical fixation of right intertrochanteric fracture. Condition remains tenuous. Prognosis guarded. At this time we will continue antibiotics for her UTI, 1 day of postop antibiotics prophylactically as well. Hyperkalemia improving. Noted to have anemia this morning that has worsened. Plan to transfuse 2 units of blood. Anticipate physical therapy consult in the next 24 to 48 hours pending patient's improvement and ability to participate in assessment. Continues to require inpatient management.
--- NOTE | 2019-01-16 16:39 | Progress Note ---
Subjective Date: 01/16/19 Time: 16:15 Principal diagnosis: R intertrochanteric femur fracture Interval history: Patient is status post Gamma nail fixation for right intertrochanteric fracture post op day #1. Patient is laying down on the bed. Patient is somewhat confused and difficult to communicate with. Nursing staff says she is doing well and also participated in physical therapy transferring to the chair with help. Patient apparently is refusing any pain medication. No history of any nausea or vomiting. She is on 2 L of oxygen with nasal cannula and her oxygen saturations are in the high 90s. The H&H is low postoperatively and she is awaiting blood transfusion. PN: Obj Ex Vital signs: Temp Pulse Resp BP Pulse Ox 99.3 F 88 14 130/46 L 96 01/16/19 16:16 01/16/19 16:00 01/16/19 16:00 01/16/19 16:00 01/16/19 16:00 Narrative: Laboratory Results - last 24 hr 01/14/19 08:26: Urine Color Yellow, Urine Appearance Cloudy, Urine pH 6.0, Ur Specific [place] 1.020, Urine Protein 1+, Urine Glucose (UA) Negative, Urine Ketones Negative, Urine Blood Trace-i, Urine Nitrate Negative, Urine Bilirubin Negative, Urine Urobilinogen 0.2, Ur Leukocyte Esterase 1+ A, Urine RBC None, Urine WBC 5-10, Ur Squamous Epith Cells 3-5, Urine Bacteria 4+ 01/15/19 19:06: POC Glucose 130 H 01/15/19 20:15: WBC 17.0 H D, RBC 3.50 L, Hgb 9.0 L, Hct 30.4 L, MCV 87.0, MCH 25.7 L, MCHC 29.5 L, RDW 15.2, Plt Count 207 D, MPV 7.7, Neut % (Auto) 79.8, Lymph % (Auto) 11.2, [place] % (Auto) 7.9, Eos % (Auto) 0.9, Baso % (Auto) 0.2, Neut # (Auto) 13.5 H, Lymph # (Auto) 1.9, [place] # (Auto) 1.3 H, Eos # (Auto) 0.2, Baso # (Auto) 0.0, Total Counted 100, Neutrophils % (Manual) 71, Band Neutrophils % 7.0, Lymphocytes % (Manual) 14, Monocytes % (Manual) 7, Eosinophils % (Manual) 1, Platelet Estimate Normal, Hypochromasia 2+, Rouleaux 2+ 01/15/19 20:15: Sodium 134 L, Potassium 6.9 H*, Chloride 105, Carbon Dioxide 24, Anion Gap 11.9, BUN 24 H, Creatinine 1.63 H, Estimated Creat Clear 25, Estimated GFR 31 L, Est GFR ( Amer) 37 L, Glucose 170 H, Calcium 8.1 L, Total Bilirubin 0.2, AST 6 L D, ALT 14, Alkaline Phosphatase 84, Total Protein 6.3 L, Albumin 2.3 L, Globulin 4.0 H, Albumin/Globulin Ratio 0.6 L 01/15/19 20:27: Blood Type O Positive, Antibody Screen Negative, Crossmatch ([facility]) See Detail 01/15/19 22:03: POC Glucose 254 H 01/15/19 23:50: Sodium 134 L, Potassium 5.8 H, Chloride 103, Carbon Dioxide 24, Anion Gap 12.8, BUN 26 H, Creatinine 1.66 H, Estimated Creat Clear 24, Estimated GFR 30 L, Est GFR ( Amer) 36 L, Glucose 210 H D, Calcium 8.5 01/16/19 05:25: WBC 13.3 H, RBC 2.90 L, Hgb 7.4 L*, Hct 24.7 L, MCV 85.2, MCH 25.5 L, MCHC 29.9 L, RDW 15.0, Plt Count 277 D, MPV 7.7, Neut % (Auto) 79.8, Lymph % (Auto) 10.2, [place] % (Auto) 9.6 H, Eos % (Auto) 0.2, Baso % (Auto) 0.1, Neut # (Auto) 10.7 H, Lymph # (Auto) 1.4, [place] # (Auto) 1.3 H, Eos # (Auto) 0.0, Baso # (Auto) 0.0 01/16/19 05:25: Sodium 136, Potassium 5.0, Chloride 103, Carbon Dioxide 26, Anion Gap 12.0, BUN 24 H, Creatinine 1.43 H, Estimated Creat Clear 29, Estimated GFR 36 L, Est GFR ( Amer) 43 L, Glucose 136 H D, Calcium 8.0 L, Total Bilirubin 0.2, AST 14 L D, ALT 13, Alkaline Phosphatase 83, Total Protein 5.5 L, Albumin 2.2 L, Globulin 3.3 H, Albumin/Globulin Ratio 0.7 L 01/16/19 05:25: Blood Type Confirm O Positive Intake & Output 01/14/19 01/15/19 01/16/19 01/17/19 11:59 11:59 11:59 11:59 Intake Total 1867 / 1867 2370 / 2370 Output Total 1000 / 1000 1750 / 1750 425 / 425 Balance 867 / 867 620 / 620 -425 / -425 Weight 122 lb 118 lb 1 oz 122 lb 5 oz Exam General appearance: alert, awake, responds to verbal stimuli Cardiovascular: regular rate & rhythm, normal peripheral pulses Respiratory: No respiratory distress noted ABD: soft and non tender Neuro: alert, awake, Genitourinary: Catheter in situ. On examination of the lower extremities she is a right above-knee amputee. On examination of the right hip the dressings are clean, dry and intact. The dressings over the stump also appear clean and dry. There is no bleeding or soakage noted. There is ecchymosis over the lateral thigh and she is tender over the right hip. The stump appears well vascularized. She has 1+ distal pulses in the left lower extremity. - Urinary Catheter Management Street Cath placed during this visit: yes Urethral indwelling: Yes Reason for continuing: Surgical procedure Insertion date: 01/14/19 Insertion time: 08:35 Progress Note: A&P (1) Fall at home Status: Acute Current Visit: Yes (2) Hematoma of right hip Status: Acute Current Visit: Yes (3) Intertrochanteric fracture of right hip Status: Acute Current Visit: Yes (4) Traumatic hematoma of forehead Status: Acute Current Visit: Yes (5) UTI (urinary tract infection) Status: Acute Current Visit: Yes (6) HTN (hypertension) Status: Chronic Current Visit: No (7) Diabetes mellitus Status: Chronic Current Visit: No (8) HLD (hyperlipidemia) Status: Chronic Current Visit: No (9) PAD (peripheral artery disease) Status: Chronic Current Visit: No (10) Sepsis Status: Resolved Current Visit: Yes (11) Anemia Status: Acute Current Visit: Yes (12) TONY (acute kidney injury) Status: Acute Current Visit: Yes (13) Hyperkalemia Status: Acute Current Visit: Yes Assessment and Plan for All Diagnoses:: I have reviewed the clinical findings and progress. Patient is doing fairly well and is hemodynamically stable. She is awaiting 2 units of blood transfusion for postoperative anemia. She participated in physical therapy this afternoon and sat out in a chair for a while. Continue mobilization and physical therapy as tolerated. Continue DVT prophylaxis. Continue medical management as per Dr. Jackson.
[2019-01-17 03:00] LABS: Basophils % 0.1 % (0.1-2.0); Eosinophils # 0.1 K/mm3 (0.0-0.4); Eosinophils % 0.9 % (0.1-12.0); Lymphocytes # 0.7 K/mm3 (0.7-4.5); Lymphocytes % 6.4 % (10-50); Mean Corpuscular HGB Conc 32.3 g/dL (31.8-35.4); Mean Corpuscular Volume 83.2 fl (81-99); Mean Platelet Volume 7.7 fl (7.4-10.4); Monocytes # 0.7 K/mm3 (0.1-1.0); Monocytes % 6.5 % (1.7-9.3); Neutrophils # 8.7 K/mm3 (1.8-7.8); Neutrophils % 86.1 % (37.0-80.0); Platelet Count 261 K/mm3 (142-424); Red Blood Count 3.98 M/mm3 (4.20-5.40); Red Cell Distribution Width 14.7 % (11.5-17.5); White Blood Count 10.1 K/mm3 (4.8-10.8)
[2019-01-17 03:01] LABS: Hematocrit 33.1 % (37.0-47.0); Hemoglobin 10.7 g/dL (12.2-16.2)
[2019-01-17 03:10] LABS: Lymphocytes % 8 % (10-50); Monocytes % 3 % (2-9); Neutrophils % 84 % (42-76); RBC Morphology Normal; Total Cells Counted 100
[2019-01-17 03:13] LABS: Albumin Level 2.2 gm/dL (3.4-5.0); Albumin/Globulin Ratio 0.5 (1.1-1.8); Anion Gap 14.6 mEq/L (5-15); Bilirubin,Total 0.3 mg/dL (0.2-1.0); Calcium 8.1 mg/dL (8.5-10.1); Globulin 4.1 gm/dl (1.3-3.2); Total Protein,Serum 6.3 gm/dL (6.4-8.2)
--- NOTE | 2019-01-17 08:31 | Progress Note ---
Internal Medicine - PN: Subj *Date: 01/17/19 *Time: 09:45 Interval history: Ms. Teague did well overnight with no acute episodes. Tolerating breakfast this morning sitting upright in bed. Remains afebrile with normal vitals. No chest pain, worsening shortness of breath, nausea, vomiting. No bowel movement noted in the past 2 days. Status post 2 units of packed red blood cells yesterday due to anemia from blood loss and surgery. No events during administration of blood. Blood pressure elevated this morning. But asymptomatic. Exam Vital signs and Labs for Last 24 Hours: Temp Pulse Resp BP Pulse Ox 99.4 F 84 15 177/69 H 96 01/17/19 08:00 01/17/19 08:00 01/17/19 08:00 01/17/19 08:00 01/17/19 08:00 Laboratory Results - last 24 hr 01/15/19 20:27: Blood Type O Positive, Antibody Screen Negative, Crossmatch ([facility]) See Detail 01/16/19 05:29: POC Glucose 133 H 01/16/19 11:37: POC Glucose 142 H 01/16/19 18:02: POC Glucose 158 H 01/16/19 20:58: POC Glucose 164 H 01/17/19 02:55: Sodium 136, Potassium 4.6, Chloride 101, Carbon Dioxide 25, Anion Gap 14.6, BUN 23 H, Creatinine 1.29 H, Estimated Creat Clear 32, Estimated GFR 40 L, Est GFR ( Amer) 49 L, Glucose 163 H, Calcium 8.1 L, Total Bilirubin 0.3, AST 15, ALT 10 L, Alkaline Phosphatase 86, Total Protein 6.3 L, Albumin 2.2 L, Globulin 4.1 H, Albumin/Globulin Ratio 0.5 L 01/17/19 02:55: WBC 10.1, RBC 3.98 L D, Hgb 10.7 L D, Hct 33.1 L, MCV 83.2, MCH 26.9 L, MCHC 32.3, RDW 14.7, Plt Count 261, MPV 7.7, Neut % (Auto) 86.1 H, Lymph % (Auto) 6.4 L, [place] % (Auto) 6.5, Eos % (Auto) 0.9, Baso % (Auto) 0.1, Neut # (Auto) 8.7 H, Lymph # (Auto) 0.7, [place] # (Auto) 0.7, Eos # (Auto) 0.1, Baso # (Auto) 0.0, Total Counted 100, Neutrophils % (Manual) 84 H, Band Neutrophils % 5.0, Lymphocytes % (Manual) 8 L, Monocytes % (Manual) 3, Platelet Estimate Normal, RBC Morphology Normal 01/17/19 05:57: POC Glucose 145 H I & O for Last 24 hours: Intake & Output 01/14/19 01/15/19 01/16/19 01/17/19 23:59 23:59 23:59 23:59 Intake Total 216 / 416 3051 / 3051 2738 / 2738 575 / 575 Output Total 800 / 800 475 / 565 2050 / 3150 1875 / 1875 Balance -584 / -384 2576 / 2486 688 / -412 -1300 / -1300 Weight 52.248 kg 53.552 kg 55.48 kg 59.449 kg Microbiology Reports for the Last 24 Hours: Microbiology 01/15/19 21:00 Sputum - Endotracheal Tube Aspirate Gram Stain - Final 01/15/19 21:00 Sputum - Endotracheal Tube Aspirate Sputum Culture - Preliminary 01/14/19 09:55 Blood Blood Culture - Preliminary NO GROWTH AFTER 48 HOURS 01/14/19 09:55 Blood Blood Culture - Preliminary NO GROWTH AFTER 48 HOURS 01/14/19 08:26 Urine,Catheterized Urine Culture - Preliminary Klebsiella pneumoniae Gram Positive Cocci Narrative: - Constitutional No acute distress, thin, chronically ill appearing, alert and oriented to person. Nasal cannula in place - *Routine HEENT Exam Head: Present: normocephalic Comments: right forehead hematoma continues to improve ever so slightly. poor dentition with moist mucous membranes. - *Routine Neck Exam Present: supple. Absent: JVD - *Routine Respiratory Exam Present: Coarse breath sounds bilaterally with rhonchi and expiratory wheeze. Fair air movement in the upper lobes with diminished bilateral lower lobe air movement. - *Routine Cardiovascular Exam Present: RRR, Normal S1. Absent: murmur - *Routine Abdominal Exam Present: soft, normoactive bowel sounds - *Routine Extremities Exam Absent: cyanosis, clubbing, edema Comments: Pulses thready in left lower extremity. Right lower extremity absent proximal to knee, ecchymoses on right lateral hip, postsurgical bandages in place - *Routine Skin Exam Present: intact, pallor. Absent: cyanosis, erythema - *Routine Neurological Exam Present: Alert, oriented to person. Answering questions appropriately Assessment and Plan (1) Fall at home Current visit: Yes Status: Acute Category: Medical Code(s): W19.XXXA - Unspecified fall, initial encounter; Y92.009 - Unspecified place in unspecified non-institutional (private) residence as the place of occurrence of the external cause (2) Hematoma of right hip Current visit: Yes Status: Acute Category: Medical Code(s): S70.01XA - Contusion of right hip, initial encounter (3) Intertrochanteric fracture of right hip Current visit: Yes Status: Acute Qualifiers: Encounter type: initial encounter Fracture type: closed Fracture alignment: nondisplaced Qualified Code(s): S72.144A - Nondisplaced intertrochanteric fracture of right femur, initial encounter for closed fracture Category: Medical Code(s): S72.141A - Displaced intertrochanteric fracture of right femur, initial encounter for closed fracture (4) Traumatic hematoma of forehead Current visit: Yes Status: Acute Category: Medical Code(s): S00.83XA - Contusion of other part of head, initial encounter (5) UTI (urinary tract infection) Current visit: Yes Status: Acute Category: Medical Code(s): N39.0 - Urinary tract infection, site not specified (6) HTN (hypertension) Current visit: No Status: Chronic Qualifiers: Hypertension type: essential hypertension Qualified Code(s): I10 - Essential (primary) hypertension Category: Medical Code(s): I10 - Essential (primary) hypertension (7) Diabetes mellitus Current visit: No Status: Chronic Qualifiers: Diabetes mellitus type: type 2 Diabetes mellitus terminal clerk insulin use: unspecified prison insulin use status Diabetes mellitus complication status: with circulatory complication Diabetes mellitus complication detail: with other circulatory complications Qualified Code(s): E11.59 - Type 2 diabetes mellitus with other circulatory complications Category: Medical Code(s): E11.9 - Type 2 diabetes mellitus without complications (8) HLD (hyperlipidemia) Current visit: No Status: Chronic Qualifiers: Hyperlipidemia type: other hyperlipidemia Qualified Code(s): E78.49 - Other hyperlipidemia; E78.4 - Other hyperlipidemia Category: Medical Code(s): E78.5 - Hyperlipidemia, unspecified (9) PAD (peripheral artery disease) Current visit: No Status: Chronic Category: Medical Code(s): I73.9 - Peripheral vascular disease, unspecified (10) Sepsis Current visit: Yes Status: Resolved Qualifiers: Sepsis type: sepsis due to unspecified organism Sepsis acute organ dysfunction status: without acute organ dysfunction Qualified Code(s): A41.9 - Sepsis, unspecified organism Category: Medical Code(s): A41.9 - Sepsis, unspecified organism (11) Anemia Current visit: Yes Status: Acute Qualifiers: Anemia type: other cause Category: Medical Code(s): D64.9 - Anemia, unspecified (12) TONY (acute kidney injury) Current visit: Yes Status: Acute Category: Medical Code(s): N17.9 - Acute kidney failure, unspecified (13) Hyperkalemia Current visit: Yes Status: Acute Category: Medical Code(s): E87.5 - Hyperkalemia (14) Elevated troponin Current visit: Yes Status: Acute Category: Medical Code(s): R74.8 - Abnormal levels of other serum enzymes (15) T wave inversion in EKG Current visit: Yes Status: Acute Category: Medical Code(s): R94.31 - Abnormal electrocardiogram [ECG] [EKG] - Assessment and plan all Dx Assessment and Plan for all problems:: Ms. Teague is a 74-year-old female status post fixation of right hip fracture. Showing some gradual improvement in her clinical status. Physical therapy worked with her yesterday and recommend short-term rehab. Tolerating p.o. intake. Kidney function normalized. Received 2 units packed red blood cells yesterday with improvement in her hemoglobin. Of concern this morning is some changes in telemetry with T wave inversion. EKG obtained showing T wave inversions in anterolateral/inferior leads. Troponin obtained at 0.8. Will repeat troponins through the day. As patient is asymptomatic this is concerning for an NSTEMI likely related to her elevated blood pressure. Resuming blood pressure medications. Continues to require inpatient management. Condition serious. Prognosis guarded. We will keep patient in stepdown level of care pending troponins. If they decreased with improved blood pressure control, will decrease level of care to acute. Spate needing inpatient management for another 1 to 2 days
--- NOTE | 2019-01-17 16:25 | Progress Note ---
Subjective Date: 01/17/19 Time: 16:00 Principal diagnosis: R intertrochanteric femur fracture Interval history: Patient is status post Gamma nail fixation for right intertrochanteric fracture post op day # 2. Patient is laying down on the bed. Patient says she is doing well and reports no problems. She says her pain is well controlled. Nursing staff says she is doing well compared to the previous day and again participated in physical therapy transferring to the chair with help. She is eating drinking well. No history of any nausea or vomiting. PN: Obj Ex Vital signs: Temp Pulse Resp BP Pulse Ox 98.3 F 78 18 133/55 L 98 01/17/19 16:00 01/17/19 16:00 01/17/19 16:00 01/17/19 16:00 01/17/19 16:00 Narrative: Laboratory Results - last 24 hr 01/15/19 20:27: Blood Type O Positive, Antibody Screen Negative, Crossmatch ([facility]) See Detail 01/16/19 05:29: POC Glucose 133 H 01/16/19 11:37: POC Glucose 142 H 01/16/19 18:02: POC Glucose 158 H 01/16/19 20:58: POC Glucose 164 H 01/17/19 02:55: Sodium 136, Potassium 4.6, Chloride 101, Carbon Dioxide 25, Anion Gap 14.6, BUN 23 H, Creatinine 1.29 H, Estimated Creat Clear 32, Estimated GFR 40 L, Est GFR ( Amer) 49 L, Glucose 163 H, Calcium 8.1 L, Total Bilirubin 0.3, AST 15, ALT 10 L, Alkaline Phosphatase 86, Total Protein 6.3 L, Albumin 2.2 L, Globulin 4.1 H, Albumin/Globulin Ratio 0.5 L 01/17/19 02:55: WBC 10.1, RBC 3.98 L D, Hgb 10.7 L D, Hct 33.1 L, MCV 83.2, MCH 26.9 L, MCHC 32.3, RDW 14.7, Plt Count 261, MPV 7.7, Neut % (Auto) 86.1 H, Lymph % (Auto) 6.4 L, [place] % (Auto) 6.5, Eos % (Auto) 0.9, Baso % (Auto) 0.1, Neut # (Auto) 8.7 H, Lymph # (Auto) 0.7, [place] # (Auto) 0.7, Eos # (Auto) 0.1, Baso # (Auto) 0.0, Total Counted 100, Neutrophils % (Manual) 84 H, Band Neutrophils % 5.0, Lymphocytes % (Manual) 8 L, Monocytes % (Manual) 3, Platelet Estimate Normal, RBC Morphology Normal 01/17/19 05:57: POC Glucose 145 H 01/17/19 08:45: Troponin I 0.83 H 01/17/19 10:42: POC Glucose 162 H 01/17/19 11:54: Troponin I 0.67 H Exam General appearance: alert, awake, responds to verbal stimuli and answering questions appropriately Cardiovascular: regular rate & rhythm, normal peripheral pulses Respiratory: No respiratory distress noted ABD: soft and non tender Neuro: alert, awake Genitourinary: Catheter in situ. On examination of the lower extremities she is a right above-knee amputee. On examination of the right hip the dressings are clean, dry and intact. The dressings over the stump also are clean and dry. I have changed the dressings today and the incisions/wounds are healthy. There was minimal soaking of the dressings from dried blood. No signs of infection or discharge noted. There is ecchymosis over the lateral thigh and she is tender over the right hip. The stump appears well vascularized. She has 1+ distal pulses in the left lower e xtremity. - Urinary Catheter Management Street Cath placed during this visit: yes Urethral indwelling: Yes Reason for continuing: Surgical procedure Insertion date: 01/16/19 Insertion time: 23:45 Progress Note: A&P (1) Fall at home Status: Acute Current Visit: Yes (2) Hematoma of right hip Status: Acute Current Visit: Yes (3) Intertrochanteric fracture of right hip Status: Acute Current Visit: Yes (4) Traumatic hematoma of forehead Status: Acute Current Visit: Yes (5) UTI (urinary tract infection) Status: Acute Current Visit: Yes (6) HTN (hypertension) Status: Chronic Current Visit: No (7) Diabetes mellitus Status: Chronic Current Visit: No (8) HLD (hyperlipidemia) Status: Chronic Current Visit: No (9) PAD (peripheral artery disease) Status: Chronic Current Visit: No (10) Sepsis Status: Resolved Current Visit: Yes (11) Anemia Status: Acute Current Visit: Yes (12) TONY (acute kidney injury) Status: Acute Current Visit: Yes (13) Hyperkalemia Status: Acute Current Visit: Yes (14) Elevated troponin Status: Acute Current Visit: Yes (15) T wave inversion in EKG Status: Acute Current Visit: Yes Assessment and Plan for All Diagnoses:: I have reviewed the clinical findings and progress with the patient. Patient is doing well compared to her status yesterday and the day before. She had 2 units of blood transfusion for postoperative anemia yesterday and her H&H have appropriately improved. According to the nursing staff, she again participated in physical therapy today and sat out in a chair for almost 4 hours. I have change the surgical dressings today and the incisions are healthy, clean and dry. Continue mobilization and physical therapy as tolerated. Continue DVT prophylaxis. Continue medical management as per Dr. Jackson.
[2019-01-18 05:33] LABS: Basophils % 0.1 % (0.1-2.0); Eosinophils # 0.3 K/mm3 (0.0-0.4); Eosinophils % 2.4 % (0.1-12.0); Hematocrit 33.2 % (37.0-47.0); Hemoglobin 10.6 g/dL (12.2-16.2); Lymphocytes # 1.4 K/mm3 (0.7-4.5); Lymphocytes % 12.7 % (10-50); Mean Corpuscular Volume 83.5 fl (81-99); Mean Platelet Volume 7.7 fl (7.4-10.4); Monocytes # 1.1 K/mm3 (0.1-1.0); Monocytes % 9.9 % (1.7-9.3); Neutrophils # 8.3 K/mm3 (1.8-7.8); Neutrophils % 74.9 % (37.0-80.0); Platelet Count 269 K/mm3 (142-424); Red Blood Count 3.98 M/mm3 (4.20-5.40); Red Cell Distribution Width 14.9 % (11.5-17.5); White Blood Count 11.1 K/mm3 (4.8-10.8)
[2019-01-18 05:41] LABS: Anion Gap 12.1 mEq/L (5-15)
--- NOTE | 2019-01-18 07:52 | Progress Note ---
Internal Medicine - PN: Subj *Date: 01/18/19 *Time: 07:51 Exam Vital signs and Labs for Last 24 Hours: Temp Pulse Resp BP Pulse Ox 97.8 F 72 18 161/66 H 93 L 01/18/19 04:00 01/18/19 06:16 01/18/19 04:00 01/18/19 04:00 01/18/19 04:00 Laboratory Results - last 24 hr 01/17/19 08:45: Troponin I 0.83 H 01/17/19 10:42: POC Glucose 162 H 01/17/19 11:54: Troponin I 0.67 H 01/17/19 16:10: POC Glucose 185 H 01/17/19 20:03: POC Glucose 201 H 01/18/19 05:08: POC Glucose 130 H 01/18/19 05:15: WBC 11.1 H, RBC 3.98 L, Hgb 10.6 L, Hct 33.2 L, MCV 83.5, MCH 26.7 L, MCHC 32.0, RDW 14.9, Plt Count 269, MPV 7.7, Neut % (Auto) 74.9, Lymph % (Auto) 12.7, [place] % (Auto) 9.9 H, Eos % (Auto) 2.4, Baso % (Auto) 0.1, Neut # (Auto) 8.3 H, Lymph # (Auto) 1.4, [place] # (Auto) 1.1 H, Eos # (Auto) 0.3, Baso # (Auto) 0.0 01/18/19 05:15: Sodium 136, Potassium 4.1, Chloride 100, Carbon Dioxide 28, Anion Gap 12.1, BUN 24 H, Creatinine 1.06 H, Estimated Creat Clear 43, Estimated GFR 50 L, Est GFR ( Amer) 61 D, Glucose 134 H, Calcium 8.0 L I & O for Last 24 hours: Intake & Output 01/15/19 01/16/19 01/17/19 01/18/19 23:59 23:59 23:59 23:59 Intake Total 3051 / 3051 2788 / 2788 1406 / 1406 572 / 572 Output Total 475 / 565 2050 / 3150 3125 / 3125 700 / 700 Balance 2576 / 2486 738 / -362 -1719 / -1719 -128 / -128 Weight 53.552 kg 55.48 kg 59.449 kg 60.923 kg Microbiology Reports for the Last 24 Hours: Microbiology 01/15/19 21:00 Sputum - Endotracheal Tube Aspirate Gram Stain - Final 01/15/19 21:00 Sputum - Endotracheal Tube Aspirate Sputum Culture - Prelimin juan c Gram Negative Rods Assessment and Plan (1) Fall at home Current visit: Yes Status: Acute Category: Medical Code(s): W19.XXXA - Unspecified fall, initial encounter; Y92.009 - Unspecified place in unspecified non-institutional (private) residence as the place of occurrence of the external cause (2) Hematoma of right hip Current visit: Yes Status: Acute Category: Medical Code(s): S70.01XA - Contusion of right hip, initial encounter (3) Intertrochanteric fracture of right hip Current visit: Yes Status: Acute Qualifiers: Encounter type: initial encounter Fracture type: closed Fracture alignment: nondisplaced Qualified Code(s): S72.144A - Nondisplaced intertrochanteric fracture of right femur, initial encounter for closed fracture Category: Medical Code(s): S72.141A - Displaced intertrochanteric fracture of right femur, initial encounter for closed fracture (4) Traumatic hematoma of forehead Current visit: Yes Status: Acute Category: Medical Code(s): S00.83XA - Contusion of other part of head, initial encounter (5) UTI (urinary tract infection) Current visit: Yes Status: Acute Category: Medical Code(s): N39.0 - Urinary tract infection, site not specified (6) HTN (hypertension) Current visit: No Status: Chronic Qualifiers: Hypertension type: essential hypertension Qualified Code(s): I10 - Essential (primary) hypertension Category: Medical Code(s): I10 - Essential (primary) hypertension (7) Diabetes mellitus Current visit: No Status: Chronic Qualifiers: Diabetes mellitus type: type 2 Diabetes mellitus medical terminologist insulin use: unspecified medical terminologist insulin use status Diabetes mellitus complication status: with circulatory complication Diabetes mellitus complication detail: with other circulatory complications Qualified Code(s): E11.59 - Type 2 diabetes mellitus with other circulatory complications Category: Medical Code(s): E11.9 - Type 2 diabetes mellitus without complications (8) HLD (hyperlipidemia) Current visit: No Status: Chronic Qualifiers: Hyperlipidemia type: other hyperlipidemia Qualified Code(s): E78.49 - Other hyperlipidemia; E78.4 - Other hyperlipidemia Category: Medical Code(s): E78.5 - Hyperlipidemia, unspecified (9) PAD (peripheral artery disease) Current visit: No Status: Chronic Category: Medical Code(s): I73.9 - Peripheral vascular disease, unspecified (10) Sepsis Current visit: Yes Status: Resolved Qualifiers: Sepsis type: sepsis due to unspecified organism Sepsis acute organ dysfunction status: without acute organ dysfunction Qualified Code(s): A41.9 - Sepsis, unspecified organism Category: Medical Code(s): A41.9 - Sepsis, unspecified organism (11) Anemia Current visit: Yes Status: Acute Qualifiers: Anemia type: other cause Category: Medical Code(s): D64.9 - Anemia, unspecified (12) TONY (acute kidney injury) Current visit: Yes Status: Acute Category: Medical Code(s): N17.9 - Acute kidney failure, unspecified (13) Hyperkalemia Current visit: Yes Status: Acute Category: Medical Code(s): E87.5 - Hyperkalemia (14) Elevated troponin Current visit: Yes Status: Acute Category: Medical Code(s): R74.8 - Abnormal levels of other serum enzymes (15) T wave inversion in EKG Current visit: Yes Status: Acute Category: Medical Code(s): R94.31 - Abnormal electrocardiogram [ECG] [EKG] The patient's infection will respond to the chosen ABx?: Yes Could a more targeted ABx be ordered?: No
--- NOTE | 2019-01-18 08:40 | Discharge Summary ---
General - General Admission date:: 01/14/19 Discharge date: 01/18/19 HPI HPI: Ms. Teague is a 73-year-old female with multiple comorbidities consisting coronary artery disease, hypertension, diabetes, right AKA, on Plavix and aspirin who presented to the ER earlier today after a fall. Unable to obtain history from patient on exam this afternoon but obtain history from family at bedside (son and [id number]). They report that she fell while trying to transition from her bed to her wheelchair. She was using her manual wheelchair instead of her motorized scooter at the time and it appeared that it had flipped while she was trying to get into it causing her to fall, hit her head on the bedside table, and have trauma to right side of her face, arm, leg. They report that she she does not ambulate at baseline and is status post right AKA for complications of diabetes. She lives independently and transports around her house using either motorized scooter or manual wheelchair in her left leg for propulsion. They report finding her at her bedside and calling EMS who brought her to the ER. On assessment it was found that when she fell, she sustained large hematomas to the right hip and the scalp, as well as a right intertrochanteric femur fracture. He says that she does not ambulate at baseline and has not used a prosthesis for this limb. He says her leg was initially amputated due to complications of diabetes. She also has a history of peripheral vascular disease status post bypass grafting, though the exact procedure is unknown to him or the patient. Admitted for further management and possible fixation by orthopedic surgery. Unable to obtain review of systems from patient as she is sleeping secondary to pain medication. Dynamically stable on assessment. Hospital Course Hospital Course: Patient was admitted. After significant discussion between our team and the orthopedic team and family members, it was decided to proceed with surgery for pain relief and palliative care even though she does not weight-bear on this leg, status post amputation. Surgical approach was complicated by the presence of a large hematoma, but surgery was accomplished with pinning-please see orthopedic notes for details. Surgery was without incident but the postoperative course was complicated by need for intubation later that evening from a combination of fluid overload and patient's poor response to sedation. However, once patient's CO2 levels were lowered the patient awoke and was able to be extubated that night to a nasal cannula and did very nicely overnight. Unfortunately, the patient did suffer a type II non-STEMI, from a combination of hypoxia issues and hypertension. The patient however did well and current plan is to treat this medically given her current asymptomatic status and excellent vital signs. The patient did require transfusion for blood loss anemia from the fracture, also was found to have a urinary tract infection-present on admission-with Klebsiella, sensitive to quinolones and she is currently on levofloxacin therapy. This morning the patient is doing well, on room air oxygen. Labs are acceptable. She is alert, oriented x3 and able to eat breakfast well. Plan will be to transition her to extended care/skilled care rehabilitation for several weeks. This will happen today. We will follow her at her halfway on her standard halfway rounds. We will continue to maintain her DNR status. Objective Vital signs: Temp Pulse Resp BP Pulse Ox 98.4 F 90 17 103/41 L 92 L 01/18/19 08:00 01/18/19 08:00 01/18/19 08:00 01/18/19 08:00 01/18/19 08:00 Narrative: Patient is up in the bed eating breakfast well. She has a small contusion on th e right forehead just above the right eyebrow, however cranial nerves are intact. Heart rate regular. Anterior lungs are clear. Oropharynx clear and she has no JVD. Abdomen soft. Left leg has good perfusion. Right hip wound examination deferred to orthopedics. Alert, able to move all extremities well. Results Labs on day of discharge: Labs from last 24 hours 01/18/19 01/18/19 01/18/19 05:15 05:15 05:08 WBC 11.1 H RBC 3.98 L Hgb 10.6 L Hct 33.2 L MCV 83.5 MCH 26.7 L MCHC 32.0 RDW 14.9 Plt Count 269 MPV 7.7 Neut % (Auto) 74.9 Lymph % (Auto) 12.7 [place] % (Auto) 9.9 H Eos % (Auto) 2.4 Baso % (Auto) 0.1 Neut # (Auto) 8.3 H Lymph # (Auto) 1.4 [place] # (Auto) 1.1 H Eos # (Auto) 0.3 Baso # (Auto) 0.0 Sodium 136 Potassium 4.1 Chloride 100 Carbon Dioxide 28 Anion Gap 12.1 BUN 24 H Creatinine 1.06 H Estimated Creat Clear 43 Estimated GFR 50 L Est GFR ( Amer) 61 D Glucose 134 H POC Glucose 130 H Calcium 8.0 L Troponin I 01/17/19 01/17/19 01/17/19 20:03 16:10 11:54 WBC RBC Hgb Hct MCV MCH MCHC RDW Plt Count MPV Neut % (Auto) Lymph % (Auto) [place] % (Auto) Eos % (Auto) Baso % (Auto) Neut # (Auto) Lymph # (Auto) [place] # (Auto) Eos # (Auto) Baso # (Auto) Sodium Potassium Chloride Carbon Dioxide Anion Gap BUN Creatinine Estimated Creat Clear Estimated GFR Est GFR ( Amer) Glucose POC Glucose 201 H 185 H Calcium Troponin I 0.67 H 01/17/19 01/17/19 10:42 08:45 WBC RBC Hgb Hct MCV MCH MCHC RDW Plt Count MPV Neut % (Auto) Lymph % (Auto) [place] % (Auto) Eos % (Auto) Baso % (Auto) Neut # (Auto) Lymph # (Auto) [place] # (Auto) Eos # (Auto) Baso # (Auto) Sodium Potassium Chloride Carbon Dioxide Anion Gap BUN Creatinine Estimated Creat Clear Estimated GFR Est GFR ( Amer) Glucose POC Glucose 162 H Calcium Troponin I 0.83 H Preliminary micro results at discharge 01/14/19 08:26 Urine Culture - Preliminary Urine,Catheterized Klebsiella pneumoniae Strep gallolyticus/infantarius 01/15/19 21:00 Sputum Culture - Preliminary Sputum - Endotracheal Tube Aspirate Gram Negative Rods 01/14/19 09:55 Blood Culture - Preliminary Blood NO GROWTH AFTER 48 HOURS 01/14/19 09:55 Blood Culture - Preliminary Blood NO GROWTH AFTER 48 HOURS DS: Diagnosis - Discharge Diagnosis (1) Fall at home Status: Acute (2) Hematoma of right hip Status: Resolved (3) Intertrochanteric fracture of right hip Status: Resolved (4) Traumatic hematoma of forehead Status: Acute (5) UTI (urinary tract infection) Status: Acute (6) HTN (hypertension) Status: Chronic (7) Diabetes mellitus Status: Chronic (8) HLD (hyperlipidemia) Status: Chronic (9) PAD (peripheral artery disease) Status: Chronic (10) Sepsis Status: Resolved (11) Anemia Status: Acute Problem details: Secondary to blood loss from hip fracture (12) TONY (acute kidney injury) Status: Acute (13) Hyperkalemia Status: Resolved (14) Elevated troponin Status: Resolved (15) T wave inversion in EKG Status: Resolved (16) Non-STEMI (non-ST elevated myocardial infarction) Status: Resolved (17) Hyponatremia Status: Resolved Discharge Plan - Patient Discharge Instructions ACTIVITY: Up with assistance DIET: continue same diet Patient Instructions: DI for Hip Fracture, DI for Urinary Tract Infection (UTI), DI for Hematoma (Bruise) - Follow up Plan Follow up with: Margie Pizarro APRN [Nurse Practitioner] - Disposition: [facility] Home Medications: Home Medications Medication Instructions Recorded Confirmed Type nadolol 40 mg tablet 40 mg PO BID 08/12/17 01/14/19 History insulin glargine (U-100) 100 20 unit SUB-Q HS ml 09/02/17 01/14/19 History unit/mL (3 mL) subcutaneous pen lisinopril 20 mg tablet 20 mg PO BID tab 09/02/17 01/14/19 History Albuterol Sulfate [Proair Hfa 2 puffs IH QIDP PRN 01/14/19 01/14/19 History 90mcg/puff Inh] Aspirin [Low Dose Aspirin EC] 81 mg PO DAILY 01/14/19 01/14/19 History Clopidogrel Bisulfate [Plavix 75mg 75 mg PO DAILY 01/14/19 01/14/19 History Tab] Linaclotide [Linzess] 145 mcg PO DAILY 01/14/19 01/14/19 History Metformin HCl 500 mg PO TID 01/14/19 01/14/19 History Rosuvastatin Calcium 5 mg PO HS 01/14/19 01/14/19 History diltiazem ER 120 mg 120 mg PO DAILY #30 cap 01/14/19 01/14/19 Rx capsule,extended release 12 hr Gabapentin [Gabapentin 300mg Cap] 300 mg PO TID #90 cap 01/18/19 Rx Hydrocod/Acet 5/325 mg [[place] 1 tab PO Q4HP PRN #24 tab 01/18/19 Rx 5/325mg tablet] Zolpidem Tartrate [Ambien 10mg 10 mg PO HS #30 tab 01/18/19 Rx tablet] Prescriptions/Medication Reconciliation: New Hydrocod/Acet 5/325 mg [[place] 5/325mg tablet] 1 tab PO Q4HP PRN #24 tab PRN Reason: MODERATE PAIN Continued nadolol 40 mg tablet 40 mg PO BID lisinopril 20 mg tablet 20 mg PO BID tab insulin glargine (U-100) 100 unit/mL (3 mL) subcutaneous pen 20 unit SUB-Q HS ml diltiazem ER 120 mg capsule,extended release 12 hr 120 mg PO DAILY #30 cap Aspirin [Low Dose Aspirin EC] 81 mg PO DAILY Rosuvastatin Calcium 5 mg PO HS Zolpidem Tartrate [Ambien 10mg tablet] 10 mg PO HS #30 tab Gabapentin [Gabapentin 300mg Cap] 300 mg PO TID #90 cap Albuterol Sulfate [Proair Hfa 90mcg/puff Inh] 2 puffs IH QIDP PRN PRN Reason: Shortness Of Breath Linaclotide [Linzess] 145 mcg PO DAILY Discontinued Clopidogrel Bisulfate [Plavix 75mg Tab] 75 mg PO DAILY Metformin HCl 500 mg PO TID - Problem Reconciliation Problems Reviewed?: Yes
--- NOTE | 2019-01-18 09:21 | Progress Note ---
Subjective Date: 01/18/19 Time: 09:00 Principal diagnosis: R intertrochanteric femur fracture Interval history: The patient is doing very well this morning. She is more alert than I've seen her yet this admission. She reports soreness in the R hip but her pain is better than it was pre-operatively. She received a transfusion over the weekend and vitals have been stable. PN: Obj Ex Vital signs: Temp Pulse Resp BP Pulse Ox 98.4 F 90 17 103/41 L 92 L 01/18/19 08:00 01/18/19 08:00 01/18/19 08:00 01/18/19 08:00 01/18/19 08:00 - Constitutional no acute distress - Routine HEENT Exam Head: Present: hematoma, scalp tenderness Eye: Present: EOMI ENT: Present: mucous membranes moist - Routine Extremities Exam Comments: RLE s/p AKA (remote), now s/p IMN; dressings c/d/i w/o strikethrough SILT RLE RLE AKA stump warm, pink R lateral thigh hematoma stable - Urinary Catheter Management Street Cath placed during this visit: yes Urethral indwelling: Yes Reason for continuing: Measure accurate output Insertion date: 01/16/19 Insertion time: 23:45 Progress Note: A&P (1) Fall at home Status: Acute Current Visit: Yes (2) Hematoma of right hip Status: Resolved Current Visit: Yes (3) Intertrochanteric fracture of right hip Status: Resolved Current Visit: Yes (4) Traumatic hematoma of forehead Status: Acute Current Visit: Yes (5) UTI (urinary tract infection) Status: Acute Current Visit: Yes (6) HTN (hypertension) Status: Chronic Current Visit: No (7) Diabetes mellitus Status: Chronic Current Visit: No (8) HLD (hyperlipidemia) Status: Chronic Current Visit: No (9) PAD (peripheral artery disease) Status: Chronic Current Visit: No (10) Sepsis Status: Resolved Current Visit: Yes (11) Anemia Problem details: Secondary to blood loss from hip fracture Status: Acute Current Visit: Yes (12) TONY (acute kidney injury) Status: Acute Current Visit: Yes (13) Hyperkalemia Status: Resolved Current Visit: Yes (14) Elevated troponin Status: Resolved Current Visit: Yes (15) T wave inversion in EKG Status: Resolved Current Visit: Yes (16) Non-STEMI (non-ST elevated myocardial infarction) Status: Resolved Current Visit: Yes (17) Hyponatremia Status: Resolved Current Visit: Yes Assessment and Plan for All Diagnoses:: 74yo F POD 3 s/p IMN R femur for IT fx -- continue PT/OT; WBAT RLE but patient not ambulatory at baseline, continue transfers with assistance -- continue medical management + DVT prophy per Drs. Johnson/Renetta -- ok to d/c to fdc from ortho perspective -- f/u with me at 2 weeks post-op (date to be placed in d/c instructions)
--- NOTE | 2019-01-18 18:02 | Electrocardiograph Report ---
APPROVED REPORT Exam: Resting ECG HR:85 bpm ECG Measurements Heart Rate 85 AXES VA 158 P 78 QRSd 138 QRS 88 QT 404 T-35 QTc 480 <Conclusion> Normal sinus rhythm Right bundle branch block T wave abnormality, consider inferolateral ischemia Abnormal ECG Electronically signed by : Juan Johnson, 01/18/2019 18:01:45
--- NOTE | 2019-01-18 18:03 | Electrocardiograph Report ---
APPROVED REPORT Exam: Resting ECG HR:80 bpm ECG Measurements Heart Rate 80 AXES HI 170 P 77 QRSd 144 QRS 91 QT 438 T37 QTc 505 <Conclusion> Normal sinus rhythm Right bundle branch block Abnormal ECG Electronically signed by : Juan Johnson, 01/18/2019 18:03:40
== END 2019-01-18 15:30 | DRG 480 ==
LOC: ER 08:17 → 2ND 12:51
PROVIDERS: ADMIT Internal Medicine Adolescent Medicine; ATTEND Internal Medicine Adolescent Medicine
CPT/HCPCS: 36415; 70450; 71010; 71045; 72125; 72128; 72131; 73060; 73502; 73552; 73700; 76000; 80048; 80053; 81001; 82550; 82553; 82962; 83605; 83735; 83880; 84100; 84484; 85007; 85025; 85610; 86850; 87040; 87070; 87077; 87086; 87088; 87186; 87205; 90471; 90715; 93005; 93308; 94640; 94660; 94761; 96365; 96367; 96375; 96376; 97161; 97166; 97530; 99285; J1956; J2405; P9016; S0077

== ENCOUNTER → 2019-01-28 08:36 | Outpatient (CLI) | payer MEDICARE, MEDICAID, SELFPAY ==
--- NOTE | 2019-01-28 08:42 | XR_ITS ---
PROCEDURE: XR HIP RT 2-3V W/PELVIS CLINICAL INDICATION: Rt hip FX Follow-up ORIF right hip COMPARISON: XR HIP RT 2-3V W/PELVIS from 01/15/2019 FINDINGS: S/p gamma nail and short intramedullary shyann placement with good alignment of the intertrochanteric fracture. The remains a small amount of postsurgical gas along the proximal aspect of the femoral shaft. Vascular calcification. skin clips are present IMPRESSION: Status post ORIF right intertrochanteric fracture with good alignment Dictated by: Silviano Dean MD 01/28/2019 13:48 Electronically signed by Silviano Dean MD in [place] 01/28/2019 13:48
== END ==
PROVIDERS: PCP Internal Medicine Adolescent Medicine; Visit Provider Orthopaedic Surgery
DX: S72.001A Fracture of unspecified part of neck of right femur, initial encounter for closed fracture (principal)
CPT/HCPCS: 73502

== ENCOUNTER 2019-02-11 11:09 | Observation (INO) ==
--- NOTE | 2019-02-11 11:42 | Emergency Department Note ---
ED Disposition Clinical Impression: Acute hyperkalemia, Elevated white blood cell count Disposition: Admitted as Observation Condition on Discharge: Serious Referrals: Juan Johnson MD [Primary Care Provider] - - Critical Care Critical Care Time: No Attestation: On 02/11/19, the high probability of a clinically significant, sudden or life threatening deterioration of the following system(s) required my full and direct attention, intervention and personal management. The time I documented below is in addition to time spent performing reported procedures but includes the following listed in this critical care notation. Medical Decision Making - Medical Records Medical records reviewed: Yes: I reviewed the patient's medical records. - Jonatan Inquiry Pt receiving controlled substance: No Vital Signs: 02/11/19 11:13 02/11/19 11:48 02/11/19 12:08 Temperature 98.2 F Temperature Source Oral Pulse Rate Pulse Rate [Right Brachial] 32 L 53 L 55 L Respiratory Rate 14 Blood Pressure [Right Arm] 119/72 116/43 L 125/54 L Blood Pressure Mean [Right Arm] 87 67 77 Blood Pressure Source [Right Arm] Automatic Cuff Blood Pressure Position [Right Arm] Sitting 02 Sat by Pulse Oximetry 97 99 99 Oxygen Delivery Method Nasal Cannula Oxygen Flow Rate (LPM) 2 02/11/19 12:49 02/11/19 13:57 Temperature Temperature Source Pulse Rate 61 Pulse Rate [Right Brachial] 71 Respiratory Rate 20 Blood Pressure [Right Arm] 143/64 H Blood Pressure Mean [Right Arm] 90 Blood Pressure Source [Right Arm] Automatic Cuff Blood Pressure Position [Right Arm] Sitting 02 Sat by Pulse Oximetry 95 Oxygen Delivery Method Nasal Cannula Oxygen Flow Rate (LPM) 2 - Lab Data Lab results reviewed: Yes: I reviewed the patient's lab results. Lab Results 02/11/19 11:20: Sodium 137, Potassium 7.9 H*, Chloride 102, Carbon Dioxide 31, Anion Gap 11.9, BUN 49 H, Creatinine 1.71 H, Estimated Creat Clear 29, Estimated GFR 29 L, Est GFR ( Amer) 35 L, Glucose 175 H, Calcium 8.9, Troponin I < 0.02 02/11/19 11:20: Lactate 1.7 02/11/19 12:00: WBC 15.4 H, RBC 4.30, Hgb 11.6 L, Hct 38.6, MCV 89.9, MCH 26.9 L , MCHC 29.9 L, RDW 15.5, Plt Count 294, MPV 9.4, Neut % (Auto) 86.0 H, Lymph % (Auto) 9.8 L, [place] % (Auto) 3.1, Eos % (Auto) 0.6, Baso % (Auto) 0.4, Neut # (Auto) 13.3 H, Lymph # (Auto) 1.5, [place] # (Auto) 0.5, Eos # (Auto) 0.1, Baso # (Auto) 0.1, Total Counted 100, Neutrophils % (Manual) 78 H, Band Neutrophils % 5.0, Lymphocytes % (Manual) 12, Monocytes % (Manual) 1 L, Eosinophils % (Manual) 4 H, Platelet Estimate Clumped, Hypochromasia 1+, Stomatocytes 1+ Result diagrams: 02/11/19 12:00 02/11/19 11:20 Orders (Tests/Meds): ED MEDICATIONS Discontinued Medications Generic Name Dose Route Start Last Admin Trade Name Rae PRN Reason Stop Dose Admin Albuterol Sulfate 2.5 mg 02/11/19 12:33 02/11/19 12:49 Albuterol 0.083% 2.5mg/3ml Neb IH 02/11/19 12:34 2.5 mg ONCE ONE Administration Atropine Sulfate 0.5 mg 02/11/19 11:10 02/11/19 11:32 Atropine 1mg/10ml Syringe IV 02/11/19 11:11 0.5 mg ONCE ONE Administration Calcium Chloride 1 gm 02/11/19 12:32 02/11/19 13:55 Calcium Chloride 1gm/10ml Syringe IVP 02/11/19 12:33 1 gm ONCE ONE Administration Dextrose 50 ml 02/11/19 12:32 02/11/19 13:55 Dextrose 50% 50ml Syringe IVP 02/11/19 12:33 50 ml ONCE ONE Administration Insulin Human Regular 10 unit 02/11/19 12:32 02/11/19 13:55 Humulin R Insulin 100 Units/Ml 10ml Vial IVP 02/11/19 12:33 10 unit ONCE ONE Administration Sodium Polystyrene Sulfonate 30 gm 02/11/19 12:34 02/11/19 13:55 Kayexalate 15gm/60ml Bottle PO 02/11/19 12:35 30 gm ONCE ONE Administration ORDERS Category Date Time Status Blood Culture Stat Micro 02/11/19 11:20 Received - ECG Data Tracing #1 I reviewed this ECG and interpreted as documented below: Marked sinus bradycardia ECG normal with no acute: arrhythmias, ischemia, conduction abnormalities, chamber hypertrophy Arrhythmias present: sinus jose Conduction abnormalities present: RBBB Resp/SOB HPI - General Chief Complaint: Shortness of Breath/Dyspnea Stated Complaint: shortness of breath Time Seen by Provider: 02/11/19 11:20 Mode of Arrival: EMS Limitations: Physical Limitations Description of Symptoms (Recalled from ER Triage Doc. by RN): Pt brought in by EMS for reports of low oxygen saturations and possible vagal episode. EMS reports patient was diaphoretic and clammy, and reports "not feeling well" and constipation. EMS reported manual HR of 32 on arrival. - History of Present Illness Complaints of presyncopal episode with shortness of breath. MD Complaint: shortness of breath Onset (ago): hour(s) (1) Severity: severe Consistency/Duration: constant Relieving factors: nothing Exacerbating factors: nothing Associated symptoms: denies other symptoms Treatment prior to arrival: none - Related Data Home Medications Medication Instructions Recorded Confirmed nadolol 40 mg tablet 40 mg PO BID 08/12/17 02/11/19 insulin glargine (U-100) 100 20 unit SUB-Q HS ml 09/02/17 02/11/19 unit/mL (3 mL) subcutaneous pen lisinopril 20 mg tablet 20 mg PO BID tab 09/02/17 02/11/19 RX: Albuterol Sulfate [Proair Hfa 2 puffs IH QIDP PRN 01/14/19 02/11/19 90mcg/puff Inh] RX: Aspirin [Low Dose Aspirin EC] 81 mg PO DAILY 01/14/19 02/11/19 RX: Linaclotide [Linzess] 145 mcg PO DAILY 01/14/19 02/11/19 RX: Rosuvastatin Calcium 5 mg PO HS 01/14/19 02/11/19 Cefdinir [Omnicef 300mg Capsule] 300 mg PO BID 02/11/19 02/11/19 Previous Rx's Medication Instructions Recorded diltiazem ER 120 mg 120 mg PO DAILY #30 cap 01/14/19 capsule,extended release 12 hr RX: Gabapentin [Gabapentin 300mg 300 mg PO TID #90 cap 01/18/19 Cap] RX: Hydrocod/Acet 5/325 mg [[place] 1 tab PO Q4HP PRN #24 tab 01/18/19 5/325mg tablet] RX: Zolpidem Tartrate [Ambien 10mg 10 mg PO HS #30 tab 01/18/19 tablet] Allergies Allergy/AdvReac Type Severity Reaction Status Date / Time Penicillins [PENICILLINS] Allergy Unknown Verified 01/28/19 09:[address] [facility] History - Hepatitis A Screen Drug use history?: No High risk sexual behaviors?: No History of sexually transmitted infection?: No Currently employed?: No Childcare worker?: No Do you have indoor plumbing?: Yes Do you have electricity?: Yes Attestation statement:: This patient has been screened for Hepatitis A risk factors. I have reviewed the patient's past medical history: Yes Medical History: Reports:: Diabetes Mellitus Type 2, Hyperlipidemia, Hyperte nsion Denies:: Cancer, Diabetes Mellitus Type 1, Internal Pacemaker, MRSA, Seizures Other Medical History: Reports: Arthritis. Denies: Blood Transfusion Reaction Other Surgeries: Yes: Cardiac Catheterization (08/22/17 2 stents), Hysterectomy- Total, Other. No: Pacemaker Amputation: Yes Fractures: Yes Comment: Rt hip - Social History Smoking Status: Never smoker Tobacco Type: cigarettes Alcohol Intake: never Alcohol Intake Frequency:: other Substance Use Type: denies use Occupational Status: retired Housing: house Household Members: none Family Hx:: Diabetes ROS Obtained: Yes Systems reviewed as appropriate & no additional complaints - Constitutional Constitutional: Reports fatigue, Reports malaise - Eyes Eyes: Reports system reviewed and no additional complaints, except as docu - ENT Ears, Nose, Mouth, and Throat: Reports system reviewed and no additional complaints, except as docu - Cardiovascular Cardiovascular: Reports diaphoresis, Reports dyspnea, Reports lightheadedness - Respiratory Respiratory: Yes system reviewed and no additional complaints, except as docu, Yes dyspnea - Gastrointestinal Gastrointestingal: Reports: system reviewed and no additional complaints, except as docu - Genitourinary Female Genitourinary: Reports system reviewed and no additional complaints, except as docu - Musculoskeletal Musculoskeletal: Reports system reviewed and no additional complaints, except as docu - Integumentary/Breasts Skin/Breast: Reports system reviewed and no additional complaints, except as docu - Neurologic Neurologic: Denies convulsions, Denies headache(s), Denies loss of vision, Reports syncope - Endocrine Endocrine: Reports system reviewed and no additional complaints, except as docu - Hematologic/Lymphatic Henatologic/Lymphatic: Reports system reviewed and no additional complaints, except as docu - Allergic/Immunologic Allergic/Immunologic: Reports system reviewed and no additional complaints, except as docu Physical Exam - General General appearance: alert, in distress - Head Head exam: atraumatic, normocephalic, normal inspection - Eye Eye exam: Present: normal appearance, PERRL, EOMI - ENT ENT exam: Present: normal exam, normal oropharynx, mucous membranes moist, TM's normal bilaterally, normal external ear exam - Neck Neck exam: Present: normal inspection, full ROM, trachea midline. Absent: meningismus, lymphadenopathy - Chest Chest inspection: Present: normal inspection, symmetric chest wall rise. Absent: tenderness - Respiratory Respiratory exam: Present: normal lung sounds bilaterally. Absent: respiratory distress - Cardiovascular Cardiovascular exam: Present: regular rate, bradycardia, normal heart sounds. Absent: systolic murmur, diastolic murmur, rubs, gallop, clicks, JVD - Abdominal Exam Abdominal exam: Present: soft, normal bowel sounds. Absent: distention, tenderness, guarding - Extremities Exam Extremities exam: Present: normal inspection, full ROM, normal capillary refill. Absent: calf tenderness - Back Exam Back exam: Present: normal inspection. Absent: tenderness - Neurological Exam Neurological exam: Present: alert, oriented X3, CN II-XII intact. Absent: motor sensory deficit - Psychiatric Psychiatric exam: Present: normal affect, normal mood - Skin Skin exam: Present: warm, dry, intact, normal color - Lymphatic Lymphatic Findings: no adenopathy
[2019-02-11 12:14] LABS: Basophils # 0.1 K/mm3 (0-0.2); Basophils % 0.4 % (0.1-2.0); Eosinophils # 0.1 K/mm3 (0.0-0.4); Eosinophils % 0.6 % (0.1-12.0); Hematocrit 38.6 % (37.0-47.0); Hemoglobin 11.6 g/dL (12.2-16.2); Lymphocytes # 1.5 K/mm3 (0.7-4.5); Lymphocytes % 9.8 % (10-50); Mean Corpuscular HGB Conc 29.9 g/dL (31.8-35.4); Mean Corpuscular Volume 89.9 fl (81-99); Mean Platelet Volume 9.4 fl (7.4-10.4); Monocytes # 0.5 K/mm3 (0.1-1.0); Monocytes % 3.1 % (1.7-9.3); Neutrophils # 13.3 K/mm3 (1.8-7.8); Platelet Count 294 K/mm3 (142-424); Red Cell Distribution Width 15.5 % (11.5-17.5); White Blood Count 15.4 K/mm3 (4.8-10.8)
[2019-02-11 12:26] LABS: Anion Gap 11.9 mEq/L (5-15); Blood Urea Nitrogen 49 mg/dL (7-18); Calcium 8.9 mg/dL (8.5-10.1); Carbon Dioxide 31 mmol/L (21.0-32.0); Chloride 102 mmol/L (98-107); Glucose 175 mg/dL (74-106); Sodium 137 mmol/L (136-145)
[2019-02-11 12:43] LABS: Eosinophils % 4 % (0-3); Hypochromasia 1+; Lymphocytes % 12 % (10-50); Monocytes % 1 % (2-9); Neutrophils % 78 % (42-76); Stomatocytes 1+; Total Cells Counted 100
--- NOTE | 2019-02-11 17:29 | History & Physical Report ---
*Admission Date: 02/11/19 *Chief complaint: hyperkalemia *History of present illness: Ms. Teague is a 74-year-old female who recently underwent surgical fixation of left hip fracture within the past 3 weeks and has been residing at a residential for rehab since. She presents today via EMS after feeling fatigued and presyncopal. Was noted to be bradycardic and brought to the hospital for further management assessment. On presentation labs were obtained showing significant hyperkalemia and EKG changes. She was treated aggressively with calcium gluconate, insulin and glucose, albuterol, and Kayexalate. Patient was admitted to medicine for further management. Additionally was noted to have leukocytosis of unexplained origin. Urinalysis ordered, pending at time of assessment. [facility] History I have reviewed the patient's past medical history: Yes Medical History: Reports:: Diabetes Mellitus Type 2, Hyperlipidemia, Hypertension Denies:: Cancer, Diabetes Mellitus Type 1, Internal Pacemaker, MRSA, Seizures *Have you ever received a pneumonia vaccine?: Yes *Have you received a flu vaccine this season?: Yes Other Medical History: Reports: Arthritis. Denies: Blood Transfusion Reaction Other Surgeries: Yes: Cardiac Catheterization (08/22/17 2 stents), Hysterectomy- Total, Other. No: Pacemaker Amputation: Yes Fractures: Yes - *Social History Smoking Status: Never smoker Tobacco Type: cigarettes Alcohol Intake: never Alcohol Intake Frequency:: other Substance Use Type: denies use *Occupational Status:: retired Housing: house Household Members: none *Travel in the last 8 weeks: None Family Hx:: Diabetes Review of Systems - Review of Systems Review of systems:: pertinent systems reviewed and negative unless documented below - *Neurologic Reports fainting, Denies seizure-like activity, Denies headache(s), Denies loss of vision Meds Home Medications Medication Instructions Recorded Confirmed Type nadolol 40 mg tablet 40 mg PO BID 08/12/17 02/11/19 History insulin glargine (U-100) 100 20 unit SUB-Q HS ml 09/02/17 02/11/19 History unit/mL (3 mL) subcutaneous pen lisinopril 20 mg tablet 20 mg PO BID tab 09/02/17 02/11/19 History Aspirin [Low Dose Aspirin EC] 81 mg PO DAILY 01/14/19 02/11/19 History Linaclotide [Linzess] 145 mcg PO DAILY 01/14/19 02/11/19 History Rosuvastatin Calcium 5 mg PO HS 01/14/19 02/11/19 History diltiazem ER 120 mg 120 mg PO DAILY #30 cap 01/14/19 02/11/19 Rx capsule,extended release 12 hr Gabapentin [Gabapentin 300mg Cap] 300 mg PO TID #90 cap 01/18/19 02/11/19 Rx Hydrocod/Acet 5/325 mg [[place] 1 tab PO Q4HP PRN #24 tab 01/18/19 02/11/19 Rx 5/325mg tablet] Cefdinir [Omnicef 300mg Capsule] 300 mg PO BID 02/11/19 02/11/19 History Ipratropium/Albuterol Sulfate 3 ml IH Q6HP PRN 02/11/19 02/11/19 History [Iprat-Albut 0.5-3(2.5) mg/3 ml] Multivitamin [Multivitamins] 1 each PO DAILY 02/11/19 02/11/19 History Allergies Allergy/AdvReac Type Severity Reaction Status Date / Time Penicillins [PENICILLINS] Allergy Unknown Verified 01/28/19 09:46 Exam Vital signs and Labs for Last 24 Hours: Temp Pulse Resp BP Pulse Ox 98.6 F 83 17 157/60 H 100 02/11/19 16:50 02/11/19 16:58 02/11/19 16:50 02/11/19 16:58 02/11/19 16:58 Laboratory Results - last 24 hr 02/11/19 11:20: Sodium 137, Potassium 7.9 H*, Chloride 102, Carbon Dioxide 31, Anion Gap 11.9, BUN 49 H, Creatinine 1.71 H, Estimated Creat Clear 29, Estimated GFR 29 L, Est GFR ( Amer) 35 L, Glucose 175 H, Calcium 8.9, Troponin I < 0.02 02/11/19 11:20: Lactate 1.7 02/11/19 12:00: WBC 15.4 H, RBC 4.30, Hgb 11.6 L, Hct 38.6, MCV 89.9, MCH 26.9 L , MCHC 29.9 L, RDW 15.5, Plt Count 294, MPV 9.4, Neut % (Auto) 86.0 H, Lymph % (Auto) 9.8 L, [place] % (Auto) 3.1, Eos % (Auto) 0.6, Baso % (Auto) 0.4, Neut # (Auto) 13.3 H, Lymph # (Auto) 1.5, [place] # (Auto) 0.5, Eos # (Auto) 0.1, Baso # (Auto) 0.1, Total Counted 100, Neutrophils % (Manual) 78 H, Band Neutrophils % 5.0, Lymphocytes % (Manual) 12, Monocytes % (Manual) 1 L, Eosinophils % (Manual) 4 H, Platelet Estimate Clumped, Hypochromasia 1+, Stomatocytes 1+ I & O for Last 24 hours: Intake & Output 02/08/19 02/09/19 02/10/19 02/11/19 23:59 23:59 23:59 23:59 Intake Total 1999 Balance 1999 Weight 65.771 kg - Constitutional no acute distress, chronically ill appearing, agitated Comments: Elderly, mildly confused and verbally combatant. - *Routine HEENT Exam Head: Present: normocephalic, atraumatic Eye: Present: EOMI ENT: Present: mucous membranes moist Comments: Poor dentition - *Routine Neck Exam Present: supple. Absent: JVD - *Routine Respiratory Exam Present: CTA bilaterally - *Routine Cardiovascular Exam Present: RRR. Absent: murmur - *Routine Abdominal Exam Present: soft, normoactive bowel sounds. Absent: tenderness - *Routine Extremities Exam Absent: cyanosis, clubbing, edema Comments: Right lower extremity with AKA. Left lower extremity with pulses intact, no edema - *Routine Skin Exam Present: warm. Absent: rash - *Routine Neurological Exam Present: alert Oriented to person. Intermittently confused and needing continuous redirection. Dementia with some disorientation to current condition and why she is at the hospital. Assessment and Plan (1) Acute hyperkalemia Current visit: Yes Status: Acute Category: Medical Code(s): E87.5 - Hyperkalemia Treated aggressively with medical management. Repeat potassium level improving at 5.7. Will monitor with morning labs. Continue fluid resuscitation as suspected dehydration is culprit and hyperkalemia. Will avoid supplements at this time. Monitor on telemetry (2) Elevated white blood cell count Current visit: Yes Status: Acute Qualifiers: Leukocytosis type: bandemia Qualified Code(s): D72.825 - Bandemia Category: Medical Code(s): D72.829 - Elevated white blood cell count, unspecified Unclear source at this time with no signs of pneumonia on chest x-ray, no respiratory distress, no fevers. Blood cultures obtained. Urinalysis ordered. Holding on antibiotics at this time given no focal source for infection as cause for elevated white count. Have low threshold to start antibiotics if develops signs of infection (3) TONY (acute kidney injury) Current visit: No Status: Acute Category: Medical Code(s): N17.9 - Acute kidney failure, unspecified Suspect prerenal. Improving with fluid resuscitation. Continue maintenance fluids overnight. Avoid nephrotoxic agents (4) Abnormal EKG Current visit: No Status: Acute Category: Medical Code(s): R94.31 - Abnormal electrocardiogram [ECG] [EKG] (5) Hip fracture Current visit: No Status: Resolved Qualifiers: Encounter type: sequela Fracture type: closed Laterality: left Qualified Code(s): S72.002S - Fracture of unspecified part of neck of left femur, sequela Category: Medical Code(s): S72.009A - Fracture of unspecified part of neck of unspecified femur, initial encounter for closed fracture Status post surgical fixation during last hospitalization. Has been tolerating physical therapy and doing well per her son's report. Allow movement/ambulation with assistance - Assessment and plan all Dx Assessment and Plan for all problems:: 74-year-old female with recent hip fracture who presented with hyperkalemia and TONY. Monitor for signs of infection. Medically managed kidney dysfunction and elevated potassium. He has normalized in the morning, will likely discharge back to residential for further management. Monitor on telemetry overnight, repeat labs in the morning. Condition guarded, prognosis fair
[2019-02-11 18:39] LABS: Anion Gap 12.7 mEq/L (5-15); Calcium 8.9 mg/dL (8.5-10.1)
[2019-02-12 02:42] LABS: Microscopic, Urine URINE MICROSCOPIC (MICROSCOPIC)
[2019-02-12 02:46] LABS: Appearance,Urine CLEAR (Clear); Bilirubin,Urine Negative (Negative); Blood, Urine 1+ (Negative); Color,Urine YELLOW (Yellow); Glucose,Urine (UA) Negative (Negative); Ketones,Urine Negative (Negative); Leukocyte Esterase,Urine 3+ (Negative); Protein,Urine 1+ (Negative); Specific Gravity, Urine 1.015 (1.005-1.030); Urobilinogen,Urine 0.2 EU/dl (0.2)
[2019-02-12 03:49] LABS: Bacteria,Urine 4+ /lpf; WBC,Urine 20-50 #/hpf (0-3)
[2019-02-12 06:17] LABS: Basophils % 0.4 % (0.1-2.0); Eosinophils # 0.1 K/mm3 (0.0-0.4); Eosinophils % 1.4 % (0.1-12.0); Hematocrit 31.1 % (37.0-47.0); Hemoglobin 10.6 g/dL (12.2-16.2); Lymphocytes # 1.7 K/mm3 (0.7-4.5); Lymphocytes % 22.9 % (10-50); Mean Corpuscular HGB Conc 34.1 g/dL (31.8-35.4); Mean Corpuscular Volume 87.8 fl (81-99); Mean Platelet Volume 7.9 fl (7.4-10.4); Monocytes # 0.5 K/mm3 (0.1-1.0); Monocytes % 7.1 % (1.7-9.3); Neutrophils # 4.9 K/mm3 (1.8-7.8); Neutrophils % 68.2 % (37.0-80.0); Platelet Count 280 K/mm3 (142-424); Red Blood Count 3.54 M/mm3 (4.20-5.40); Red Cell Distribution Width 15.7 % (11.5-17.5); White Blood Count 7.2 K/mm3 (4.8-10.8)
[2019-02-12 07:16] LABS: Albumin Level 2.9 gm/dL (3.4-5.0); Albumin/Globulin Ratio 0.7 (1.1-1.8); Anion Gap 10.9 mEq/L (5-15); Bilirubin,Total 0.2 mg/dL (0.2-1.0); Chol/HDL Ratio 3.5 (1-3.5); Globulin 4.2 gm/dl (1.3-3.2); Phosphorous 4.2 mg/dL (2.4-4.9); Total Protein,Serum 7.1 gm/dL (6.4-8.2)
--- NOTE | 2019-02-12 07:29 | Pharmacy Consult Notes ---
[facility] Pharmacy VTE Monitoring - Patient Demographics Admission date: 02/11/19 Report Date: 02/12/19 Time: 07:28 Allergies/Adverse Reactions: Patient Allergies Penicillins [PENICILLINS] Allergy (Unknown, Verified 01/28/19 09:46) Height: 1.73 m Weight: 55.792 kg Patient Problems: Current Active Problems Acute hyperkalemia (Acute) Elevated white blood cell count (Acute) - VTE Risk Labs: VTE Related Lab Results Hgb 10.6 g/dL (12.2-16.2) L 02/12/19 05:55 Hct 31.1 % (37.0-47.0) L 02/12/19 05:55 Plt Count 280 K/mm3 (142-424) 02/12/19 05:55 BUN 26 mg/dL (7-18) H D 02/12/19 05:55 Creatinine 0.97 mg/dL (0.55-1.02) D 02/12/19 05:55 Estimated Creat Clear 42 mL/min (50-200) 02/12/19 05:55 Was VTE Risk Assessment Performed: Yes VTE Score: 5 VTE Risk Level: Low Risk - Prophylaxis VTE Prophylaxis Ordered?: Yes Types of VTE Prophylaxis: TEDS Knee High Location of Applied Device: Bilateral Lower Extremeties - VTE Diagnosis Confirmed Treatment or plan recommended: Continue Current Treatment
--- NOTE | 2019-02-12 08:24 | Discharge Summary ---
General - General Admission date:: 02/11/19 Discharge date: 02/12/19 HPI HPI: Ms. Teague is a 74-year-old female who recently underwent surgical fixation of left hip fracture within the past 3 weeks and has been residing at a [facility] for rehab since. She presents today via EMS after feeling fatigued and presyncopal. Was noted to be bradycardic and brought to the hospital for further management assessment. On presentation labs were obtained showing significant hyperkalemia and EKG changes. She was treated aggressively with calcium gluconate, insulin and glucose, albuterol, and Kayexalate. Patient was admitted to medicine for further management. Additionally was noted to have leukocytosis of unexplained origin. Urinalysis ordered, pending at time of assessment. Hospital Course Hospital Course: Ms. Teague was admitted for hyperkalemia and TONY. Additionally had elevated white count on admission. Found to have concern for a UTI. Aggressive medical management of her hyperkalemia resulted in normalization after receiving calcium gluconate, dextrose and insulin, albuterol, Kayexalate, and IV fluids. Kidney function normalized. We will base antibiotics for UTI off of previous cultures. Initiating Omnicef 300 mg twice daily for the next 10 days. Medically stable for discharge back to fdc. Today has no complaints of shortness of breath, belly pain, nausea, vomiting, fevers. Has been hemodynamically stable. No events on telemetry after treatment of her hyperkalemia. Plan to get back to fdc for resumption of physical therapy from her recent left hip frac ture. Objective Vital signs: Temp Pulse Resp BP Pulse Ox 98.4 F 86 16 166/64 H 94 L 02/12/19 04:00 02/12/19 04:00 02/12/19 04:00 02/12/19 04:00 02/12/19 04:00 Narrative: - Constitutional no acute distress, chronically ill appearing Comments: Elderly, alert and oriented to person and place, pleasant this morning on interview - *Routine HEENT Exam Head: Present: normocephalic, atraumatic Eye: Present: EOMI ENT: Present: mucous membranes moist Comments: Poor dentition - *Routine Neck Exam Present: supple. Absent: JVD - *Routine Respiratory Exam Present: CTA bilaterally - *Routine Cardiovascular Exam Present: RRR. Absent: murmur - *Routine Abdominal Exam Present: soft, normoactive bowel sounds. Absent: tenderness - *Routine Extremities Exam Absent: cyanosis, clubbing, edema Comments: Right lower extremity with AKA. Left lower extremity with pulses intact, no edema - *Routine Skin Exam Present: warm. Absent: rash - *Routine Neurological Exam Present: alert, oriented to person and place. No significant confusion this morning. No altered mental status. Results Labs on day of discharge: Labs from last 24 hours 02/12/19 02/12/19 02/12/19 06:22 05:57 05:55 WBC RBC Hgb Hct MCV MCH MCHC RDW Plt Count MPV Neut % (Auto) Lymph % (Auto) [place] % (Auto) Eos % (Auto) Baso % (Auto) Neut # (Auto) Lymph # (Auto) [place] # (Auto) Eos # (Auto) Baso # (Auto) Total Counted Neutrophils % (Manual) Band Neutrophils % Lymphocytes % (Manual) Monocytes % (Manual) Eosinophils % (Manual) Platelet Estimate Hypochromasia Stomatocytes Sodium 142 Potassium 4.9 Chloride 106 Carbon Dioxide 30 Anion Gap 10.9 BUN 26 H D Creatinine 0.97 D Estimated Creat Clear 42 Estimated GFR 56 L Est GFR ( Amer) 68 D Glucose 48 L D POC Glucose 113 H 69 L Lactate Calcium 9.0 Phosphorus 4.2 Total Bilirubin 0.2 AST 12 L ALT 12 Alkaline Phosphatase 283 H Troponin I Total Protein 7.1 Albumin 2.9 L Globulin 4.2 H Albumin/Globulin Ratio 0.7 L Triglycerides 107 Cholesterol 149 LDL Cholesterol 85 VLDL Cholesterol 21 HDL Cholesterol 43 Cholesterol/HDL Ratio 3.5 Urine Color Urine Appearance Urine pH Ur Specific [place] Urine Protein Urine Glucose (UA) Urine Ketones Urine Blood Urine Nitrate Urine Bilirubin Urine Urobilinogen Ur Leukocyte Esterase Urine WBC Urine Bacteria 02/12/19 02/12/19 02/12/19 05:55 05:42 02:38 WBC 7.2 D RBC 3.54 L Hgb 10.6 L Hct 31.1 L MCV 87.8 MCH 29.9 MCHC 34.1 RDW 15.7 Plt Count 280 MPV 7.9 Neut % (Auto) 68.2 Lymph % (Auto) 22.9 [place] % (Auto) 7.1 Eos % (Auto) 1.4 Baso % (Auto) 0.4 Neut # (Auto) 4.9 Lymph # (Auto) 1.7 [place] # (Auto) 0.5 Eos # (Auto) 0.1 Baso # (Auto) 0.0 Total Counted Neutrophils % (Manual) Band Neutrophils % Lymphocytes % (Manual) Monocytes % (Manual) Eosinophils % (Manual) Platelet Estimate Hypochromasia Stomatocytes Sodium Potassium Chloride Carbon Dioxide Anion Gap BUN Creatinine Estimated Creat Clear Estimated GFR Est GFR ( Amer) Glucose POC Glucose 42 L* Lactate Calcium Phosphorus Total Bilirubin AST ALT Alkaline Phosphatase Troponin I Total Protein Albumin Globulin Albumin/Globulin Ratio Triglycerides Cholesterol LDL Cholesterol VLDL Cholesterol HDL Cholesterol Cholesterol/HDL Ratio Urine Color Yellow Urine Appearance Clear Urine pH 6.0 Ur Specific [place] 1.015 Urine Protein 1+ Urine Glucose (UA) Negative Urine Ketones Negative Urine Blood 1+ Urine Nitrate Positive Urine Bilirubin Negative Urine Urobilinogen 0.2 Ur Leukocyte Esterase 3+ A Urine WBC 20-50 Urine Bacteria 4+ 02/11/19 02/11/19 02/11/19 21:16 18:07 12:00 WBC 15.4 H RBC 4.30 Hgb 11.6 L Hct 38.6 MCV 89.9 MCH 26.9 L MCHC 29.9 L RDW 15.5 Plt Count 294 MPV 9.4 Neut % (Auto) 86.0 H Lymph % (Auto) 9.8 L [place] % (Auto) 3.1 Eos % (Auto) 0.6 Baso % (Auto) 0.4 Neut # (Auto) 13.3 H Lymph # (Auto) 1.5 [place] # (Auto) 0.5 Eos # (Auto) 0.1 Baso # (Auto) 0.1 Total Counted 100 Neutrophils % (Manual) 78 H Band Neutrophils % 5.0 Lymphocytes % (Manual) 12 Monocytes % (Manual) 1 L Eosinophils % (Manual) 4 H Platelet Estimate Clumped Hypochromasia 1+ Stomatocytes 1+ Sodium 139 Potassium 5.7 H D Chloride 103 Carbon Dioxide 29 Anion Gap 12.7 BUN 38 H Creatinine 1.31 H D Estimated Creat Clear 38 Estimated GFR 39 L Est GFR ( Amer) 48 L D Glucose 170 H POC Glucose 171 H Lactate Calcium 8.9 Phosphorus Total Bilirubin AST ALT Alkaline Phosphatase Troponin I Total Protein Albumin Globulin Albumin/Globulin Ratio Triglycerides Cholesterol LDL Cholesterol VLDL Cholesterol HDL Cholesterol Cholesterol/HDL Ratio Urine Color Urine Appearance Urine pH Ur Specific [place] Urine Protein Urine Glucose (UA) Urine Ketones Urine Blood Urine Nitrate Urine Bilirubin Urine Urobilinogen Ur Leukocyte Esterase Urine WBC Urine Bacteria 02/11/19 02/11/19 11:20 11:20 WBC RBC Hgb Hct MCV MCH MCHC RDW Plt Count MPV Neut % (Auto) Lymph % (Auto) [place] % (Auto) Eos % (Auto) Baso % (Auto) Neut # (Auto) Lymph # (Auto) [place] # (Auto) Eos # (Auto) Baso # (Auto) Total Counted Neutrophils % (Manual) Band Neutrophils % Lymphocytes % (Manual) Monocytes % (Manual) Eosinophils % (Manual) Platelet Estimate Hypochromasia Stomatocytes Sodium 137 Potassium 7.9 H* Chloride 102 Carbon Dioxide 31 Anion Gap 11.9 BUN 49 H Creatinine 1.71 H Estimated Creat Clear 29 Estimated GFR 29 L Est GFR ( Amer) 35 L Glucose 175 H POC Glucose Lactate 1.7 Calcium 8.9 Phosphorus Total Bilirubin AST ALT Alkaline Phosphatase Troponin I < 0.02 Total Protein Albumin Globulin Albumin/Globulin Ratio Triglycerides Cholesterol LDL Cholesterol VLDL Cholesterol HDL Cholesterol Cholesterol/HDL Ratio Urine Color Urine Appearance Urine pH Ur Specific [place] Urine Protein Urine Glucose (UA) Urine Ketones Urine Blood Urine Nitrate Urine Bilirubin Urine Urobilinogen Ur Leukocyte Esterase Urine WBC Urine Bacteria DS: Diagnosis - Discharge Diagnosis (1) Acute hyperkalemia Status: Resolved (2) Elevated white blood cell count Status: Resolved (3) TONY (acute kidney injury) Status: Resolved (4) Abnormal EKG Status: Resolved (5) Hip fracture Status: Resolved (6) UTI (urinary tract infection) Status: Acute Discharge Plan - Patient Discharge Instructions Patient Instructions: DI for Hyperkalemia, Hyperkalemia - Follow up Plan Disposition: [facility] Home Medications: Home Medications Medication Instructions Recorded Confirmed Type nadolol 40 mg tablet 40 mg PO BID 08/12/17 02/11/19 History insulin glargine (U-100) 100 20 unit SQ HS ml 09/02/17 02/12/19 History unit/mL (3 mL) subcutaneous pen lisinopril 20 mg tablet 20 mg PO BID tab 09/02/17 02/11/19 History Aspirin [Low Dose Aspirin EC] 81 mg PO DAILY 01/14/19 02/11/19 History Linaclotide [Linzess] 145 mcg PO DAILY 01/14/19 02/11/19 History Rosuvastatin Calcium 5 mg PO HS 01/14/19 02/11/19 History diltiazem ER 120 mg 120 mg PO DAILY #30 cap 01/14/19 02/11/19 Rx capsule,extended release 12 hr Gabapentin [Gabapentin 300mg Cap] 300 mg PO TID #90 cap 01/18/19 02/11/19 Rx Hydrocod/Acet 5/325 mg [[place] 1 tab PO Q4HP PRN #24 tab 01/18/19 02/11/19 Rx 5/325mg tablet] Ipratropium/Albuterol Sulfate 3 ml IH Q6HP PRN 02/11/19 02/11/19 History [Iprat-Albut 0.5-3(2.5) mg/3 ml] Multivitamin [Multivitamins] 1 each PO DAILY 02/11/19 02/11/19 History Cefdinir [Omnicef 300mg Capsule] 300 mg PO BID 10 Days #20 cap 02/12/19 Rx Zolpidem Tartrate [Ambien 10mg 10 mg PO HS 02/12/19 02/12/19 History tablet] Prescriptions/Medication Reconciliation: Continued nadolol 40 mg tablet 40 mg PO BID lisinopril 20 mg tablet 20 mg PO BID tab insulin glargine (U-100) 100 unit/mL (3 mL) subcutaneous pen 20 unit SQ HS ml diltiazem ER 120 mg capsule,extended release 12 hr 120 mg PO DAILY #30 cap Aspirin [Low Dose Aspirin EC] 81 mg PO DAILY Rosuvastatin Calcium 5 mg PO HS Hydrocod/Acet 5/325 mg [[place] 5/325mg tablet] 1 tab PO Q4HP PRN #24 tab PRN Reason: MODERATE PAIN Gabapentin [Gabapentin 300mg Cap] 300 mg PO TID #90 cap Ipratropium/Albuterol Sulfate [Iprat-Albut 0.5-3(2.5) mg/3 ml] 3 ml IH Q6HP PRN PRN Reason: Wheezing Zolpidem Tartrate [Ambien 10mg tablet] 10 mg PO HS Cefdinir [Omnicef 300mg Capsule] 300 mg PO BID 10 Days #20 cap Linaclotide [Linzess] 145 mcg PO DAILY Multivitamin [Multivitamins] 1 each PO DAILY - Problem Reconciliation Problems Reviewed?: Yes
--- NOTE | 2019-02-13 19:17 | Electrocardiograph Report ---
APPROVED REPORT Exam: Resting ECG HR:37 bpm ECG Measurements Heart Rate 37 AXES DC 154 P 88 QRSd 128 QRS 91 QT 510 T57 QTc 400 <Conclusion> Marked sinus bradycardia Right bundle branch block Abnormal ECG Electronically signed by : Juan Johnson, 02/13/2019 19:16:32
== END 2019-02-12 10:14 ==
LOC: ER 11:09 → 2ND 11:09
PROVIDERS: ADMIT Internal Medicine Adolescent Medicine; ATTEND Internal Medicine Adolescent Medicine
CPT/HCPCS: 36415; 71010; 71045; 80048; 80053; 80061; 81001; 82962; 83605; 84100; 84484; 85007; 85025; 87040; 87086; 87088; 87186; 93005; 94761; 96365; 96366; 96375; 96376; 99285; G0378

== ENCOUNTER → 2019-03-04 08:16 | Outpatient (CLI) | payer MEDICARE, MEDICAID, SELFPAY ==
--- NOTE | 2019-03-04 08:35 | XR_ITS ---
PROCEDURE: XR HIP RT 2-3V W/PELVIS CLINICAL INDICATION: Hip FX FU Follow-up hip fracture/ORIF COMPARISON: XR HIP RT 2-3V W/PELVIS from 01/28/2019 FINDINGS: Gamma nail with intramedullary shyann is present in the right hip stabilizing an old intertrochanteric fracture with sclerosis of the fracture site consistent with healing. There is a above the knee amputation on the right. Well-circumscribed calcific density is noted in the right hip region and may be due to an injection granuloma. There is generalized vascular calcification. IMPRESSION: Healing right intertrochanteric hip fracture status post ORIF Dictated by: Silviano Dean MD 03/04/2019 15:35 Electronically signed by Silviano Dean MD in [place] 03/04/2019 15:35
== END ==
PROVIDERS: PCP Internal Medicine Adolescent Medicine; Visit Provider Orthopaedic Surgery
DX: S72.143A Displaced intertrochanteric fracture of unspecified femur, initial encounter for closed fracture (principal)
CPT/HCPCS: 73502

== ENCOUNTER → 2019-04-12 09:33 | Outpatient (CLI) | payer MEDICARE, MEDICAID, SELFPAY ==
--- NOTE | 2019-04-12 09:45 | XR_ITS ---
PROCEDURE: XR HIP RT 2-3V W/PELVIS CLINICAL INDICATION: Hip FX Follow-up fracture, right hip pain COMPARISON: CT HIP RT WO CON from 01/14/2019 XR HIP RT 2-3V W/PELVIS from 03/04/2019 FINDINGS: Gamma nail with short intramedullary shyann is in place. Healing intertrochanteric fracture is present with good alignment. There above the amputation on the right. IMPRESSION: Good alignment healing right intertrochanteric fracture status post ORIF Dictated by: Silviano Dean MD 04/12/2019 20:17 Electronically signed by Silviano Dean MD in [place] 04/12/2019 20:17
== END ==
PROVIDERS: PCP Internal Medicine Adolescent Medicine; Visit Provider Orthopaedic Surgery
DX: S72.141A Displaced intertrochanteric fracture of right femur, initial encounter for closed fracture (principal)
CPT/HCPCS: 73502

== ENCOUNTER → 2020-06-05 14:01 | Outpatient (CLI) | payer MEDICARE, MEDICAID, SELFPAY ==
[2020-06-05 14:04] LABS: Microscopic, Urine URINE MICROSCOPIC (MICROSCOPIC)
[2020-06-05 14:14] LABS: Appearance,Urine CLEAR (Clear); Bilirubin,Urine Negative (Negative); Blood, Urine 2+ (Negative); Color,Urine YELLOW (Yellow); Glucose,Urine (UA) Negative (Negative); Ketones,Urine Negative (Negative); Leukocyte Esterase,Urine 1+ (Negative); Nitrate,Urine Negative (Negative); PH,Urine 6.5 (5.0-8.5); Protein,Urine Negative (Negative); Urobilinogen,Urine 0.2 EU/dl (0.2)
[2020-06-05 14:33] LABS: Bacteria,Urine 1+ /lpf; Squamous Epithelial Cell,Urine Occasional #/hpf (0-5)
== END ==
PROVIDERS: Visit Provider Internal Medicine Adolescent Medicine
DX: R30.0 Dysuria (principal); N39.0 Urinary tract infection, site not specified
CPT/HCPCS: 81001; 87086; 87088; 87186